=== PATIENT | male | born 1950 | race Caucasian/White ===

== ENCOUNTER 2018-11-20 12:05 | Inpatient (IN) | payer MEDICARE, BC, OTHER ==
[~2018-11-20] VITALS: Ht 193 cm; Wt 138.9 kg
[2018-11-20] MEDS: IV NORMAL SALINE 1,000ML 1,000 ML IV SCH (03:00)
[2018-11-20] MEDS ORDERED: IV NORMAL SALINE 1,000ML 1,000 ML IV SCH (12:35)
--- NOTE | 2018-11-20 12:44 | PHYS DOC ---
Past History Past Medical History: Other Additional Past Medical Histor: diabetes, schizophrenia, BPH, hyperlipidemia, delusional disorder Smoking: Non-smoker Alcohol Use: None Drug Use: None Adult General Chief Complaint Chief Complaint: OTHER COMPLAINTS HPI HPI Patient is a 67 year old male sent from the [facility] care facility where he resides due to decreased oral intake over the past couple of days, abdominal pain, elevated blood sugar and diabetic patient. History is limited from the patient due to his history of schizophrenia and not speaking. He was found by EMS to be mildly hypoxic. This improved with supplemental, nasal cannula oxygen.[] Review of Systems Review of Systems Unable to obtain from patient All other systems were reviewed and found to be within normal limits, except as documented in this note. Physical Exam Physical Exam Constitutional: Well developed, well nourished, no acute distress, non-toxic appearance. [] HENT: Normocephalic, atraumatic, bilateral external ears normal, oropharynx moist, no oral exudates, nose normal. [] Eyes: PERRLA, EOMI, conjunctiva normal, no discharge. [] Neck: Normal range of motion, no tenderness, supple, no stridor. [] Cardiovascular:Heart rate is tachycardic with a regular rhythm, no murmur [] Lungs & Thorax: Bilateral breath sounds clear to auscultation [] Abdomen: Bowel sounds normal, soft, diffuse tenderness, no rebound, no guarding, no rigidity, no masses, no pulsatile masses. [] Skin: Warm, dry, no erythema, no rash. [] Back: No tenderness, no CVA tenderness. [] Extremities: No tenderness, no cyanosis, no clubbing, ROM intact, no edema. [] Neurologic: Alert and oriented X 3, normal motor function, normal sensory function, no focal deficits noted. [] Psychologic: Affect normal, judgement normal, mood normal. [] EKG EKG EKG shows a sinus tachycardia at 111 bpm, left axis, QTC of 447 ms, no ST elevation. No old EKG available for comparison. Interpreted by me at 1217[] Radiology/Procedures Radiology/Procedures PROCEDURE: CT ANGIO CHEST W ABD PEL W/ PQRS Compliance Statement: One or more of the following individualized dose reduction techniques were utilized for this examination: 1. Automated exposure control 2. Adjustment of the mA and/or kV according to patient size 3. Use of iterative reconstruction technique CT angiography chest, abdomen and pelvis with contrast 11/20/2018 2:19 PM INDICATION: Hypoxia, elevated d-dimer COMPARISON: None available TECHNIQUE: Multiple axial CT images of the chest, abdomen and pelvis were obtained after the intravenous administration of 98 mL nonionic contrast. Maximum intensity projection images are provided. Coronal and sagittal reformats are provided. FINDINGS: Thyroid gland is normal in appearance. Heart size is borderline enlarged. Calcified mediastinal lymphadenopathy is identified suggestive of remote granulomatous exposure. Thoracic esophagus is normal in appearance. Thoracic aorta is normal in course and caliber with mild calcified atheromatous plaque. Three-vessel coronary artery vascular calcifications are present. There is bibasilar airspace consolidation which may represent subsegmental atelectasis versus infiltrate. There is a femoral neck calcified granuloma in the medial left lung base. There is no significant pulmonary vascular congestion or pneumothorax. There is adequate opacification of the central pulmonary arteries with limited evaluation of the lobar, segmental and subsegmental pulmonary arteries secondary to limited contrast bolus an respiratory motion. No filling defects are identified within the opacified portions of the pulmonary arteries. This includes the central and main pulmonary arteries. There is possible filling defect within a left lower lobar segmental pulmonary artery, although given limitations from above this may be artifactual. Abdomen/pelvis: Liver is normal in appearance. Calcifications within the spleen likely represent sequela prior granulomatous exposure. Metallic densities identified within the stomach resulting in artifact in the left upper quadrant. There is moderate atrophy of the pancreas. No pancreatic ductal dilatation is visualized. Gallbladder is normal in appearance. The abdominal aorta is normal in course and caliber. There are no pathologically enlarged lymph nodes in the abdomen and pelvis. There is no abdominal free fluid. There is no free intraperitoneal air. Mild calcified atheromatous plaque is identified involving the abdominal aorta. Small fat-containing left inguinal hernia. There is a shunt catheter identified within the right midabdomen. No free fluid or free intraperitoneal air. Small and large bowel are normal in caliber. No evidence for bowel obstruction or inflammation. Appendix is normal in appearance. The kidneys enhance symmetrically. There is no suspicious renal mass. There is no hydronephrosis. There are no suspected calculi within the kidneys, ureters or urinary bladder. Urinary bladder is predominantly decompressed from Smith catheter. Minimal gas is likely iatrogenic. Prostatomegaly measuring 5.5 x 6.0 cm in transaxial dimensions. There is diffuse osteopenia. No suspicious osseous abnormality is identified. IMPRESSION: 1. Limited evaluation of the pulmonary arteries although there is no central or main pulmonary embolism. There may be a filling defect within the left lower lobe pulmonary artery although this may be artifactual secondary to poor contrast opacification and respiratory motion. 2. Bilateral lower lobe airspace consolidation may be associated with multifocal infiltrates versus atelectasis versus pulmonary infarcts from pulmonary emboli. Recommend short-term follow-up. 3. Metallic density within the dependent portion of the stomach may be ingested foreign body measuring 5 mm. No bowel obstruction or inflammation. 4. Prostatomegaly. 5. Smith catheter is in position. FOR INTERNAL CODING PURPOSES Critical result: Findings discussed with GUS CALABRESE at 11/20/2018 4:48 PM.[] Course & Med Decision Making Course & Med Decision Making Pertinent Labs and Imaging studies reviewed. (See chart for details) ED course: Patient arrived, was placed in bed, and tolerated exam well. He was given IV fluids, and antibiotics for presumptive infection prior to imaging results. He was given multiple breathing treatments which didn't improve lung sounds and his oxygenation. His heart rate also improved with the IV fluids. After the return of the laboratory and imaging findings, consultation was made with the hospitalist service for admission. He graciously accepted the patient. Medical decision making: Patient with infiltrate versus PE. Favor the infiltrate. He has received antibiotics. Additional fluids are infusing. His sugars are elevated but he does not appear to be in DKA given his normal pH. He is being admitted for further evaluation and treatment area[] Dragon Disclaimer Dragon Disclaimer This electronic medical record was generated, in whole or in part, using a voice recognition dictation system. Departure Departure: Impression: Primary Impression: Pneumonia Additional Impressions: Elevated lactic acid level Schizophrenia Poorly controlled diabetes mellitus Hypoxia Disposition: 09 ADMITTED INPATIENT Admitting Physician: Gordo Morrison Condition: IMPROVED Problem Qualifiers Primary Impression: Pneumonia Pneumonia type: due to unspecified organism Laterality: bilateral Lung location: lower lobe of lung Qualified Codes: J18.1 - Lobar pneumonia, unspecified organism Additional Impressions: Schizophrenia Schizophrenia type: unspecified Qualified Codes: F20.9 - Schizophrenia, unspecified GUS CALABRESE DO Nov 20, 2018 12:44
[2018-11-20 13:10] LABS: BASO % 0 % (0-3); EOS % 0 % (0-3); HEMATOCRIT 47.6 % (39.0-53.0); HEMOGLOBIN 15.5 g/dL (13.0-17.5); LYMPH # 1.3 x10^3/uL (1.0-4.8); LYMPH % 11 % (24-48); MEAN CORPUSCULAR HEMOGLOBIN 31 pg (25-35); MEAN CORPUSCULAR HGB CONC 33 g/dL (31-37); MEAN CORPUSCULAR VOLUME 96 fL (79-100); MONO # 1.3 x10^3/uL (0.0-1.1); MONO % 12 % (0-9); NEUT # 8.8 x10^3uL (1.8-7.7); NEUT % 77 % (31-73); PLATELET COUNT 233 x10^3/uL (140-400); RED BLOOD COUNT 4.96 x10^6/uL (4.30-5.70); RED CELL DISTRIBUTION WIDTH 14.1 % (11.5-14.5); WHITE BLOOD COUNT 11.5 x10^3/uL (4.0-11.0)
[2018-11-20 13:14] LABS: ALBUMIN 2.7 g/dL (3.4-5.0); ALBUMIN/GLOBULIN RATIO 0.6 (1.0-1.7); CALCIUM 8.9 mg/dL (8.5-10.1); CREATININE 1.1 mg/dL (0.7-1.3); GFR 66.4; POTASSIUM 3.7 mmol/L (3.5-5.1); TOTAL BILIRUBIN 0.7 mg/dL (0.2-1.0); TOTAL PROTEIN 6.9 g/dL (6.4-8.2)
[2018-11-20] MEDS ORDERED: IOHEXOL 300 MG/ML 75 ML VIAL. IV ONE (13:30)
[2018-11-20] MEDS ORDERED: ONDANSETRON PF 4 MG/2 ML VIAL. IV ONE (13:30)
[2018-11-20] MEDS ORDERED: IOHEXOL 240 MG/ML 50ML VIAL. PO ONE (13:30)
[2018-11-20] MEDS ORDERED: IPRATRPIUM/ALBUTEROL 0.5/2.5MG 3 ML NEBU. NEB ONE (13:30)
[2018-11-20] MEDS ORDERED: ALBUTEROL SULFATE 2.5 MG/3 ML NEBU. ONE (13:31)
[2018-11-20 13:38] LABS: BGAS PH 7.45 (7.35-7.46)
--- NOTE | 2018-11-20 13:56 | RAD ---
Exam performed: One view chest. Indication: Hyperglycemia, weakness and abdominal pain Date of Service: 11/20/2018 12:35 PM Comparison: None available. Single AP upright portable view chest findings: Cardiomediastinal silhouette is within limits of normal. No acute infiltrates, effusion or pneumothorax is detected. The bony structures are normal. Impression: No acute cardiopulmonary process is detected. Electronically signed by: Zainab Soliman MD (11/20/2018 1:54 PM) [facility]
[2018-11-20 14:11] LABS: BACTERIA,URINE 0 /HPF (0-FEW); BILIRUBIN,URINE NEG (NEG); CLARITY,URINE CLEAR; COLOR,URINE AMBER; GLUCOSE,URINE >=1000 mg/dL (NEG); HYALINE CASTS, URINE MOD /HPF; NITRITE,URINE NEG (NEG); RBC,URINE 0 /HPF (0-2); SQUAMOUS EPITHELIAL CELL,UR OCC /LPF; UROBILINOGEN,URINE 0.2 mg/dL (0.2 mg/dL); WBC,URINE 0 /HPF (0-4)
[2018-11-20] MEDS ORDERED: IV NORMAL SALINE 1,000ML 1,000 ML IV ONE ×2 (14:15→17:30)
--- NOTE | 2018-11-20 14:28 | EKG ---
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
--- NOTE | 2018-11-20 14:29 | EKG ---
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
[2018-11-20] MEDS ORDERED: IOHEXOL 350 MG/ML 100 ML VIAL. IV ONE (14:30)
--- NOTE | 2018-11-20 16:51 | RAD ---
PQRS Compliance Statement: One or more of the following individualized dose reduction techniques were utilized for this examination: 1. Automated exposure control 2. Adjustment of the mA and/or kV according to patient size 3. Use of iterative reconstruction technique CT angiography chest, abdomen and pelvis with contrast 11/20/2018 2:19 PM INDICATION: Hypoxia, elevated d-dimer COMPARISON: None available TECHNIQUE: Multiple axial CT images of the chest, abdomen and pelvis were obtained after the intravenous administration of 98 mL nonionic contrast. Maximum intensity projection images are provided. Coronal and sagittal reformats are provided. FINDINGS: Thyroid gland is normal in appearance. Heart size is borderline enlarged. Calcified mediastinal lymphadenopathy is identified suggestive of remote granulomatous exposure. Thoracic esophagus is normal in appearance. Thoracic aorta is normal in course and caliber with mild calcified atheromatous plaque. Three-vessel coronary artery vascular calcifications are present. There is bibasilar airspace consolidation which may represent subsegmental atelectasis versus infiltrate. There is a femoral neck calcified granuloma in the medial left lung base. There is no significant pulmonary vascular congestion or pneumothorax. There is adequate opacification of the central pulmonary arteries with limited evaluation of the lobar, segmental and subsegmental pulmonary arteries secondary to limited contrast bolus an respiratory motion. No filling defects are identified within the opacified portions of the pulmonary arteries. This includes the central and main pulmonary arteries. There is possible filling defect within a left lower lobar segmental pulmonary artery, although given limitations from above this may be artifactual. Abdomen/pelvis: Liver is normal in appearance. Calcifications within the spleen likely represent sequela prior granulomatous exposure. Metallic densities identified within the stomach resulting in artifact in the left upper quadrant. There is moderate atrophy of the pancreas. No pancreatic ductal dilatation is visualized. Gallbladder is normal in appearance. The abdominal aorta is normal in course and caliber. There are no pathologically enlarged lymph nodes in the abdomen and pelvis. There is no abdominal free fluid. There is no free intraperitoneal air. Mild calcified atheromatous plaque is identified involving the abdominal aorta. Small fat-containing left inguinal hernia. There is a shunt catheter identified within the right midabdomen. No free fluid or free intraperitoneal air. Small and large bowel are normal in caliber. No evidence for bowel obstruction or inflammation. Appendix is normal in appearance. The kidneys enhance symmetrically. There is no suspicious renal mass. There is no hydronephrosis. There are no suspected calculi within the kidneys, ureters or urinary bladder. Urinary bladder is predominantly decompressed from Smith catheter. Minimal gas is likely iatrogenic. Prostatomegaly measuring 5.5 x 6.0 cm in transaxial dimensions. There is diffuse osteopenia. No suspicious osseous abnormality is identified. IMPRESSION: 1. Limited evaluation of the pulmonary arteries although there is no central or main pulmonary embolism. There may be a filling defect within the left lower lobe pulmonary artery although this may be artifactual secondary to poor contrast opacification and respiratory motion. 2. Bilateral lower lobe airspace consolidation may be associated with multifocal infiltrates versus atelectasis versus pulmonary infarcts from pulmonary emboli. Recommend short-term follow-up. 3. Metallic density within the dependent portion of the stomach may be ingested foreign body measuring 5 mm. No bowel obstruction or inflammation. 4. Prostatomegaly. 5. Smith catheter is in position. FOR INTERNAL CODING PURPOSES Critical result: Findings discussed with GUS CALABRESE at 11/20/2018 4:48 PM. RESULT CODE: (C) Electronically signed by: Marilynn Whitt MD (11/20/2018 4:48 PM) [facility]
[2018-11-20] MEDS ORDERED: ONDANSETRON PF 4 MG/2 ML VIAL. IV PRN (18:00)
[2018-11-20] MEDS ORDERED: ACETAMINOPHEN 325 MG TABLET PO PRN (18:00)
--- NOTE | 2018-11-20 20:19 | HP ---
ADMIT DATE: 11/20/2018 ATTENDING PHYSICIAN: Dr. Madera. CHIEF COMPLAINT: Altered mentation. HISTORY OF PRESENT ILLNESS: The patient is a 67-year-old gentleman from [facility]. They sent him through the Emergency Room because of decreased mentation. Clinically, he appears very weak. He is nonverbal and nonambulatory, longstanding history of schizoaffective disorder. Workup in the ED included a chest x-ray, which is fairly unremarkable. He had elevated hemidiaphragm, poor inspiratory effort. A CT scan of the chest demonstrated no significant blood clots; however, he had bibasilar infiltrates consistent with pneumonia, it could be aspiration. He clinically appears dry. Blood sugars have been high. He is diabetic. He is admitted then with bibasilar pneumonia, assisted acquired. PAST MEDICAL HISTORY: Gleaned from the chart and his assisted paperwork. He is nonverbal. He has a longstanding history of type 2 diabetes, generalized debilitation of schizoaffective disorder. He is nonverbal. He has not had any behavioral issues. He also has paranoid schizophrenia, chronic constipation, hyperlipidemia, generalized debilitation. MEDICATIONS: Current medicines are reviewed. He is on scheduled aspirin, Lipitor, Depakote, Benadryl, Dulcolax, vitamin D, Fleets Enema as needed, Lasix 20 mg daily, Levemir, magnesium, metformin, MiraLax, paliperidone, Remeron, senna, Zoloft, Ultram and NovoLog. ALLERGIES: He has allergies to PENICILLIN, exact reaction is unclear. SOCIAL HISTORY: Nonsmoker, nondrinker. FAMILY HISTORY: Unobtainable. REVIEW OF SYSTEMS: Unobtainable. PHYSICAL EXAMINATION: GENERAL: When I saw him, this is an obtunded gentleman who is bedridden, nonverbal and nonambulatory. VITAL SIGNS: Initial vital signs in the ED showed a blood pressure of 158/60. When I saw him pulse was 102 regular, temperature 97.9 degrees Fahrenheit. HEENT: Head is without trauma. Pupils are reactive. Sclerae nonicteric. The oropharynx is clear. NECK: Supple. No stridor or bruits. Venous pressure is not distended. Oropharynx is clear. Mucous membranes dry. LUNGS: Decreased breath sounds at both bases. No wheezing identified. CARDIOVASCULAR: Showed distant heart tones. No obvious gallops. Peripheral pulses are palpable and weak. ABDOMEN: Soft, scaphoid, nontender, no organomegaly. Bowel sounds were hypoactive. EXTREMITIES: Shows contractures of his knees and feet. There is 2+ edema. Indwelling Smith catheter was in place. NEUROLOGIC: The patient is very weak, obtunded. He is nonverbal. He is nonambulatory. He is not responsive to any appropriate questions. Pertinent x-rays and CT scan as noted. He has no obvious blood clots; however, he has bibasilar infiltrates seen on CT, not seen on the plain films. PERTINENT LABORATORY STUDIES: His hemoglobin is 15.5 g/dL in a hemoconcentrated state, white count 11,500. Chemistry panel showed lactic acid 4.3. Arterial blood gas showed a pH of 7.45, pCO2 of 39 mmHg, pO2 of 52 mmHg. Supplemental oxygen was added. His creatinine was adequate. Nonfasting blood sugar is 300. ASSESSMENT: 1. A 67-year-old gentleman assisted resident, has bibasilar pneumonia, most likely on the basis of aspiration. 2. Dehydration. 3. Poorly controlled diabetes mellitus. 4. Schizoaffective disorder. 5. Paranoid schizophrenia. 6. Clinically, he is dehydrated. 7. Generalized debilitation. 8. Muscle contractions. 9. Probable aspiration. PLAN: 1. Admit to the inpatient unit. 2. IV hydration. 3. Serial chemistries and blood sugars. 4. Empiric antibiotics. 5. We shall hold his p.o. meds. 6. We will do a swallow evaluation when speech pathology is available. 7. We show ascertain his code status if the family members are available. NATALY MADERA MD DR: SHEY/ruby JOB#: [id number] / [id number] RAKESH Shelton MD
[2018-11-20 21:00] VITALS: BP 115/58
[2018-11-20 22:00] VITALS: BP 126/57
[2018-11-20 23:00] VITALS: BP 130/55
[2018-11-21] VITALS (21 sets, daily range): BP systolic 117–165; BP diastolic 41–83
[2018-11-21] MEDS: IV NORMAL SALINE 1,000ML 1,000 ML IV SCH ×3 (01:52→23:54)
[2018-11-21 05:58] LABS: BASO % 1 % (0-3); EOS % 0 % (0-3); HEMATOCRIT 38.9 % (39.0-53.0); LYMPH # 0.9 x10^3/uL (1.0-4.8); LYMPH % 9 % (24-48); MEAN CORPUSCULAR HEMOGLOBIN 32 pg (25-35); MEAN CORPUSCULAR HGB CONC 33 g/dL (31-37); MEAN CORPUSCULAR VOLUME 96 fL (79-100); MONO # 1.1 x10^3/uL (0.0-1.1); MONO % 11 % (0-9); NEUT # 7.8 x10^3uL (1.8-7.7); NEUT % 79 % (31-73); PLATELET COUNT 196 x10^3/uL (140-400); RED BLOOD COUNT 4.06 x10^6/uL (4.30-5.70); RED CELL DISTRIBUTION WIDTH 14.2 % (11.5-14.5); WHITE BLOOD COUNT 9.9 x10^3/uL (4.0-11.0)
[2018-11-21 06:05] LABS: CREATININE 0.8 mg/dL (0.7-1.3); GFR 95.8
[2018-11-21] MEDS ORDERED: DIVA500T4 PO (06:07)
[2018-11-21] MEDS ORDERED: DIPH50CA PO (06:07)
[2018-11-21] MEDS ORDERED: MAGN400C PO (06:07)
[2018-11-21] MEDS ORDERED: TRAM50TA PO (06:07)
[2018-11-21] MEDS ORDERED: INSU100I27 SQ (06:07)
[2018-11-21] MEDS ORDERED: ERGO500027 PO (06:07)
[2018-11-21] MEDS ORDERED: MIRT15TA PO (06:07)
[2018-11-21] MEDS ORDERED: METF10007 PO (06:07)
[2018-11-21] MEDS ORDERED: ATOR20TA58 PO (06:07)
[2018-11-21] MEDS ORDERED: ASPI81TA50 PO (06:07)
[2018-11-21] MEDS ORDERED: PALI3TAB2 PO (06:07)
[2018-11-21] MEDS ORDERED: INSU100I17 SQ (06:07)
[2018-11-21] MEDS ORDERED: SERT100T PO (06:07)
[2018-11-21] MEDS ORDERED: FURO-69 PO (06:07)
[2018-11-21] MEDS ORDERED: DEXTROSE 50% 25 GM / 50ML DISP.SYRIN. IV PRN (07:45)
[2018-11-21] MEDS: INSULIN LISPRO 300 UNITS/3 ML VIAL. SQ SCH ×4 (08:37→16:54)
[2018-11-21] MEDS: IPRATRPIUM/ALBUTEROL 0.5/2.5MG 3 ML NEBU. NEB SCH ×4 (08:48→20:40)
[2018-11-21] MEDS: MEROPENEM 1 GM in IV NORMAL SALINE 100ML 100 ML IV SCH ×2 (16:08→23:54)
[2018-11-21] MEDS: VANCOMYCIN PER PHARMACY MC PRN (16:46)
[2018-11-21] MEDS: VANCOMYCIN 2 GM in IV NORMAL SALINE 500ML 500 ML IV SCH (17:24)
[2018-11-21] MEDS: INSULIN GLARGINE SYRINGE. SQ SCH (21:27)
[2018-11-21] MEDS: MAGNESIUM OXIDE 400 MG TABLET PO SCH (21:27)
[2018-11-21] MEDS: DIVALPROEX ER 500 MG TAB.ER.24H PO SCH (21:28)
[2018-11-21] MEDS: risperiDONE 2 MG TABLET. PO SCH (21:28)
[2018-11-21] MEDS: ATORVASTATIN CALCIUM 20 MG TABLET PO SCH (21:28)
[2018-11-21] MEDS: MIRTAZAPINE 15 MG TABLET PO SCH (21:28)
[2018-11-21] MEDS ORDERED: MEROPENEM 1 GM in IV NORMAL SALINE 100ML 100 ML IV SCH (22:00)
[2018-11-22] VITALS (12 sets, daily range): BP systolic 110–143; BP diastolic 42–90
--- NOTE | 2018-11-22 04:42 | PN ---
DATE: 11/21/2018 SUBJECTIVE: The patient is resting, slightly propped up in bed, in no apparent respiratory distress. He is nonverbal, has prominent parkinsonian tremor at least in his right upper extremity. Apparently, he seemed to be mostly bedbound. OBJECTIVE: GENERAL: On examining him, he looked pale, but no jaundice, cyanosis or thyromegaly. No jugular venous distention. Mild bilateral lower limb edema. VITAL SIGNS: His heart rate was 92, blood pressure was 133/76, temperature was 99.8, respiratory rate was 19 and oxygen saturation was 97% on 4 liters of oxygen. HEAD, EYES, EARS, NOSE AND THROAT: Showed normocephalic, atraumatic. NECK: Supple. HEART: Showed normal first and second heart sounds. No gallop or murmur. CHEST: Clear to auscultation. No crepitation or rhonchi. ABDOMEN: Distended, soft, nontender. NEUROLOGIC: He is awake, alert, opens eyes, tracks, but does not respond verbally. All his cranial nerves seem to be grossly intact. He apparently seems to be able to move his upper extremities to much good extent than his lower extremities, mostly probably bedbound, chair bound. His intake was 2350, output was 550. LABORATORY DATA: As of this morning showed a white cell count of 9900, hemoglobin 13, hematocrit 39, MCV 96, and platelet count of 196,000. His chemistry showed that his lactic acid is trending down. His serum sodium was 143, potassium 4, chloride 106, bicarbonate 30, anion gap of 7, BUN 22, creatinine 0.8, estimated GFR was 96 mL per minute, his glucose was 340, calcium was 8, and magnesium was 1.8. His D-dimer was slightly elevated at 0.74. However, his INR and aPTT were normal. His blood gases showed a pH of ____, pCO2 of 39, pO2 of 59, bicarbonate 28, and oxygen saturation was 88% on FiO2 of 44%. His urinalysis was essentially unremarkable and his nasal screen for MRSA by PCR was negative. His CT scan of the chest, abdomen and pelvis is probably consistent with bilateral lower lobe airspace consolidation that could be multifocal infiltrate versus atelectasis versus pulmonary infarct from pulmonary emboli. He has metallic density within the dependent portion of the stomach and has severely enlarged prostate and has a Smith catheter is in position. ASSESSMENT: 1. Healthcare-associated pneumonia. 2. Poorly controlled type 2 diabetes. The patient has marked muscle weakness and contracture, it is almost functional quadriplegia and is known to have schizoaffective disorder, paranoid schizophrenia. PLAN: My plan is to change his antibiotic to Zosyn and vancomycin. Continue with IV fluid. Continue to monitor his labs closely and adjust antibiotic accordingly. RAKESH GERARDO MD DR: EMANUEL/ruby JOB#: [id number] / [id number]
[2018-11-22] MEDS: IPRATRPIUM/ALBUTEROL 0.5/2.5MG 3 ML NEBU. NEB SCH ×4 (05:18→21:16)
[2018-11-22] MEDS: VANCOMYCIN 2 GM in IV NORMAL SALINE 500ML 500 ML IV SCH ×2 (06:00→18:38)
[2018-11-22 06:16] LABS: HEMATOCRIT 35.3 % (39.0-53.0); RED BLOOD COUNT 3.73 x10^6/uL (4.30-5.70); RED CELL DISTRIBUTION WIDTH 13.7 % (11.5-14.5); WHITE BLOOD COUNT 8.1 x10^3/uL (4.0-11.0)
[2018-11-22 06:36] LABS: ALBUMIN/GLOBULIN RATIO 0.6 (1.0-1.7); CALCIUM 7.9 mg/dL (8.5-10.1); CREATININE 0.7 mg/dL (0.7-1.3); GFR 111.8; POTASSIUM 3.4 mmol/L (3.5-5.1); TOTAL BILIRUBIN 0.7 mg/dL (0.2-1.0); TOTAL PROTEIN 5.1 g/dL (6.4-8.2)
[2018-11-22] MEDS: MAGNESIUM OXIDE 400 MG TABLET PO SCH ×2 (09:00→21:15)
[2018-11-22] MEDS: ASPIRIN ENTERIC COATED 81 MG TABLET.DR. PO SCH (09:00)
[2018-11-22] MEDS: risperiDONE 2 MG TABLET. PO SCH ×2 (09:00→21:14)
[2018-11-22] MEDS: SERTRALINE 100 MG TABLET. PO SCH (09:00)
[2018-11-22] MEDS: MEROPENEM 1 GM in IV NORMAL SALINE 100ML 100 ML IV SCH ×2 (10:19→17:52)
[2018-11-22] MEDS: INSULIN LISPRO 300 UNITS/3 ML VIAL. SQ SCH ×6 (10:21→17:57)
[2018-11-22] MEDS ORDERED: FUROSEMIDE 20 MG/2 ML VIAL IVP ONE (15:45)
[2018-11-22] MEDS: metFORMIN 500 MG TABLET PO SCH (17:51)
[2018-11-22] MEDS: ATORVASTATIN CALCIUM 20 MG TABLET PO SCH (21:14)
[2018-11-22] MEDS: DIVALPROEX ER 500 MG TAB.ER.24H PO SCH (21:15)
[2018-11-22] MEDS: POTASSIUM CHLORIDE 20 MEQ TABLET.ER. PO SCH (21:15)
[2018-11-22] MEDS: MIRTAZAPINE 15 MG TABLET PO SCH (21:15)
[2018-11-22] MEDS: INSULIN GLARGINE SYRINGE. SQ SCH (21:19)
[2018-11-23] MEDS: MEROPENEM 1 GM in IV NORMAL SALINE 100ML 100 ML IV SCH ×4 (00:01→23:55)
[2018-11-23 03:35] VITALS: BP 135/59
[2018-11-23] MEDS: IPRATRPIUM/ALBUTEROL 0.5/2.5MG 3 ML NEBU. NEB SCH ×4 (05:24→21:17)
[2018-11-23 06:10] VITALS: BP 139/60
[2018-11-23 06:32] LABS: VANC TR 18.6 mcg/mL (10.0-20.0)
[2018-11-23] MEDS: VANCOMYCIN 2 GM in IV NORMAL SALINE 500ML 500 ML IV SCH ×2 (06:37→17:21)
[2018-11-23 07:37] LABS: HEMATOCRIT 37.3 % (39.0-53.0); HEMOGLOBIN 12.7 g/dL (13.0-17.5); RED BLOOD COUNT 3.96 x10^6/uL (4.30-5.70); RED CELL DISTRIBUTION WIDTH 13.8 % (11.5-14.5); WHITE BLOOD COUNT 8.2 x10^3/uL (4.0-11.0)
[2018-11-23 07:53] LABS: ALBUMIN 1.9 g/dL (3.4-5.0); ALBUMIN/GLOBULIN RATIO 0.5 (1.0-1.7); CALCIUM 7.9 mg/dL (8.5-10.1); CREATININE 0.7 mg/dL (0.7-1.3); GFR 111.8; POTASSIUM 3.4 mmol/L (3.5-5.1); TOTAL BILIRUBIN 0.7 mg/dL (0.2-1.0); TOTAL PROTEIN 5.4 g/dL (6.4-8.2)
[2018-11-23] MEDS: POTASSIUM CHLORIDE 20 MEQ TABLET.ER. PO SCH ×3 (08:44→21:08)
[2018-11-23] MEDS: MAGNESIUM OXIDE 400 MG TABLET PO SCH ×2 (08:44→21:09)
[2018-11-23] MEDS: SERTRALINE 100 MG TABLET. PO SCH (08:44)
[2018-11-23] MEDS: risperiDONE 2 MG TABLET. PO SCH ×2 (08:45→21:08)
[2018-11-23] MEDS: ASPIRIN ENTERIC COATED 81 MG TABLET.DR. PO SCH (08:45)
[2018-11-23] MEDS: INSULIN LISPRO 300 UNITS/3 ML VIAL. SQ SCH ×6 (08:47→17:23)
[2018-11-23] MEDS: VANCOMYCIN PER PHARMACY MC PRN (08:56)
[2018-11-23] MEDS: FUROSEMIDE 20 MG TABLET PO SCH (08:58)
[2018-11-23] MEDS: metFORMIN 500 MG TABLET PO SCH ×2 (08:59→16:27)
[2018-11-23 10:23] VITALS: BP 112/41
[2018-11-23 14:19] VITALS: BP 125/63
[2018-11-23] MEDS: traMADol 50 MG TABLET PO PRN ×2 (14:53→21:10)
[2018-11-23] MEDS: INSULIN GLARGINE SYRINGE. SQ SCH ×2 (14:56→21:12)
[2018-11-23] MEDS ORDERED: FUROSEMIDE 40 MG/4 ML VIAL IVP ONE (15:30)
[2018-11-23 19:15] VITALS: BP 116/69
[2018-11-23] MEDS: LACTOBACILLUS RHAMNOSUS GG 1 CAPSULE. PO SCH (21:08)
[2018-11-23] MEDS: ATORVASTATIN CALCIUM 20 MG TABLET PO SCH (21:08)
[2018-11-23] MEDS: MIRTAZAPINE 15 MG TABLET PO SCH (21:10)
[2018-11-23] MEDS: DIVALPROEX ER 500 MG TAB.ER.24H PO SCH (21:10)
[2018-11-24 00:05] VITALS: BP 91/59
[2018-11-24 03:10] VITALS: BP 98/69
--- NOTE | 2018-11-24 03:30 | CONS ---
DATE OF CONSULTATION: 11/22/2018 NEUROLOGIC CONSULTATION REFERRING PHYSICIAN: Dr. Morrison. REASON FOR CONSULTATION: Severe weakness of the lower extremities. HISTORY OF PRESENT ILLNESS: This is a 67-year-old right-handed male who is a [facility] resident, was admitted to Emergency Room on 11/20/2018 on account of acute mental status changes. Neuro consult was requested because the patient has had severe weakness of the lower extremities and tremor of the upper extremities. The patient was seen in ICU bed 2. He is not able to provide any information. In Emergency Room, the patient was nonverbalizing. He has had weakness of the lower extremities for a period of time and has been bed confined or wheelchair confined. The etiology of his weakness is uncertain. However, I was told by a nursing staff that he might have some type of brain surgery, which I am not sure, I am not able contact any family members to confirm that. When I asked the patient the questions, he is very late to respond and for simple questions, he may say 1 or 2 words. Initial chest x-ray on admission revealed no acute cardiopulmonary process, but chest, abdomen and pelvic CT scan revealed bilateral lower lobe infiltrate and pulmonary embolism could not be entirely ruled out. PAST MEDICAL HISTORY: Significant for obesity, diabetes mellitus type 2, generalized weakness, history of schizoaffective disorders and paranoid schizophrenia, hyperlipidemia, benign prostate hypertrophy, congestive heart failure and depression. SOCIAL HISTORY: The patient is a [facility] resident. There is no history of smoking or alcohol drinking, or illicit drug use. FAMILY HISTORY: Not obtainable. CURRENT HOME MEDICATIONS: Albuterol nebulizer, aspirin, Lipitor, Depakote ER, insulin, metformin, mirtazapine, potassium, Risperdal, sertraline, tramadol and vitamin D. ALLERGIES: PENICILLIN. REVIEW OF SYSTEMS: A 10-point review of system was performed as mentioned above in history of present illness, otherwise unremarkable. PHYSICAL EXAMINATION: GENERAL: Obese male, not in acute distress. He weighs 139.3 kilos. VITAL SIGNS: Blood pressure 119/90, respiratory rate 25, pulse is 100 and regular, oxygen saturation is 93% on 2 liters by nasal cannula and temperature 100.3. HEENT: Normocephalic, atraumatic, otherwise unremarkable. NECK: Supple. Negative for carotid bruit, lymphadenopathy or thyromegaly. LUNGS: With diminished breath sounds bilaterally. CARDIOVASCULAR: Regular rate and rhythm, normal S1, S2. ABDOMEN: Soft. Bowel sounds positive. EXTREMITIES: 2+ pitting edema, but no cyanosis or clubbing. NEUROLOGICAL: Mental Status: The patient is awake, but sometimes answer simple questions by 1 or 2 words. He follows 1-step simple commands. Further evaluation of his mental status is limited at this time. Cranial nerves: Pupils are reactive to light and accommodation. The extraocular movements are slow, but intact. There is no nystagmus. There is no facial motor or sensory deficit. Hearing appeared to be intact. The palate is elevated symmetrically. Further evaluation is limited at this time. Motor examination: On request, the patient moves his upper extremities spontaneously, but passively he bends his right lower extremity, but not able to move the left lower extremity. Sensory examination revealed normal pinprick touches throughout. Deep tendon reflexes were hypoactive with absent Achilles responses. Gait not tested. DIAGNOSTIC DATA: CT scan of the chest revealed evidence of bilateral basilar infiltrate. LABORATORY DATA: CBC revealed white blood cells of 8.1 thousand, hemoglobin 12, hematocrit 35.3, platelet count 182,000. Chemistry revealed ammonia level of 10, normal troponin level. NPB is high at 240. Other chemistry is pending. Urinalysis is negative. Coagulation: PT is 11, INR 1.1 and D-dimer is elevated at 0.74. IMPRESSION: 1. Generalized weakness, more prominent in the lower extremities, etiology uncertain. 2. Pneumonia, presented with bilateral lower lobe infiltrates. 3. Multiple medical problems include hyperlipidemia, chronic constipation, diabetes mellitus type 2. 4. Multiple psychiatric problems include paranoid schizophrenia and schizoaffective disorders, depression. RECOMMENDATIONS: 1. We will obtain further information from family members whether the patient had a brain surgery or not. 2. Continue with current management initiated by Dr. Moore/Dr. Morrison. M Dakota EDWARDS MD DR: YOSSI/ruby JOB#: [id number] / [id number]
[2018-11-24] MEDS: IPRATRPIUM/ALBUTEROL 0.5/2.5MG 3 ML NEBU. NEB SCH ×3 (05:08→15:59)
[2018-11-24] MEDS: VANCOMYCIN 2 GM in IV NORMAL SALINE 500ML 500 ML IV SCH (05:40)
--- NOTE | 2018-11-24 05:57 | PN ---
DATE: 11/23/2018 SUBJECTIVE: The patient is resting, slightly propped up in bed comfortably, in no apparent respiratory distress. He is awake, alert, slightly more verbal today. Did complain that he is constipated, but denied any chest pain. PHYSICAL EXAMINATION: GENERAL: When I examined him, he looked pale. Not jaundiced, cyanosed or thyromegaly. No jugular venous distention or limb edema. VITAL SIGNS: Her heart rate was 104, blood pressure was 125/63, temperature was 97.9, respiratory rate was 18, and oxygen saturation was 92% on 2.5 liters. HEAD, EYES, EARS, NOSE AND THROAT: Normocephalic, atraumatic. NECK: Supple. HEART: Showed normal first and second heart sounds with no gallop, rub or murmur. CHEST: Clear to auscultation. No crepitation or rhonchi. ABDOMEN: Distended, soft, nontender. NEUROLOGIC: He is awake, alert, but mostly nonverbal, although his cranial nerves are intact, he has pill rolling parkinsonian tremors. He has functional quadriplegia. He is mostly bedbound, chair bound. His intake over the last 24 hours was 4000, output was 975. LABORATORY WORK: As of this morning showed that his white cell count is down to 8200, hemoglobin 12.7, hematocrit 37, MCV 94 and platelet count 208,000. Serum sodium 142, potassium 3.4, chloride 104, bicarbonate 28, anion gap of 10, BUN 17, creatinine 0.7, estimated GFR was 111 mL per minute. His glucose was 108, calcium was 7.9. Total bilirubin, AST, ALT ____. His total protein was 5.4, albumin 1.9. His blood culture is still pending at the time of this dictation. ASSESSMENT: 1. Healthcare-associated pneumonia for which he continues to be on IV vancomycin and Zosyn. 2. Poorly controlled type 2 diabetes for which I have adjusted both his Lantus and Humalog insulin. 3. Severe Parkinson's disease with functional quadriplegia, marked muscle wasting and flexion contracture. 4. Schizoaffective disorder. 5. Paranoid schizophrenia. We will continue with both meropenem and vancomycin for today and if the cultures are negative and he is ALLERGIC TO PENICILLIN, we will switch him to Levaquin, can be discharged back to senior living facility tomorrow. RAKESH GERARDO MD DR: EMANUEL/ruby JOB#: [id number] / [id number]
[2018-11-24 06:05] VITALS: BP 111/55
[2018-11-24 06:29] LABS: CREATININE 0.7 mg/dL (0.7-1.3); GFR 111.8; POTASSIUM 3.6 mmol/L (3.5-5.1)
[2018-11-24] MEDS: INSULIN LISPRO 300 UNITS/3 ML VIAL. SQ SCH ×2 (08:00→14:18)
[2018-11-24] MEDS: metFORMIN 500 MG TABLET PO SCH ×3 (08:00→11:51)
[2018-11-24] MEDS: POTASSIUM CHLORIDE 20 MEQ TABLET.ER. PO SCH ×4 (09:00→12:16)
[2018-11-24] MEDS: LACTOBACILLUS RHAMNOSUS GG 1 CAPSULE. PO SCH ×3 (09:00→11:51)
[2018-11-24] MEDS: FUROSEMIDE 20 MG TABLET PO SCH ×3 (09:00→11:52)
[2018-11-24] MEDS: ASPIRIN ENTERIC COATED 81 MG TABLET.DR. PO SCH ×3 (09:00→11:51)
[2018-11-24] MEDS: MAGNESIUM OXIDE 400 MG TABLET PO SCH ×3 (09:00→11:51)
[2018-11-24] MEDS: risperiDONE 2 MG TABLET. PO SCH ×3 (09:00→11:52)
[2018-11-24] MEDS: SERTRALINE 100 MG TABLET. PO SCH ×3 (09:00→11:51)
[2018-11-24] MEDS: MEROPENEM 1 GM in IV NORMAL SALINE 100ML 100 ML IV SCH (09:32)
[2018-11-24 12:30] VITALS: BP 114/69
--- NOTE | 2018-11-24 13:39 | DS ---
DATE OF DISCHARGE: HOSPITAL COURSE: The patient is a 67-year-old male patient who is currently residing at [facility], who was sent to the Emergency Room because of decreased mentation. He is nonverbal and nonambulatory, longstanding history of schizoaffective disorder. He has had a CT scan of the chest, which showed no evidence of pulmonary emboli; however, it did show bibasilar infiltrate consistent with pneumonia that could be aspiration in nature. His blood sugar was very high. The patient was admitted with acute hypoxic respiratory failure, healthcare-associated pneumonia. As he is ALLERGIC TO PENICILLIN, he was started on vancomycin and meropenem. The patient did very well. His white cell count came down nicely from 11,500 to 8000. He remained afebrile, hemodynamically stable throughout. He became more awake, alert, although generally very weak, bedbound, has functional quadriplegia and he has remained stable, a decision was made to discharge him back to [facility] to continue on oral Levaquin. His blood cultures remained negative after 2 days. OBJECTIVE: GENERAL: When I examined him this afternoon, he looked well and was clearly in no apparent respiratory distress. He was pale, but no jaundice, cyanosis or thyromegaly. No jugular venous distention. No limb edema. VITAL SIGNS: Heart rate was 85, blood pressure was 110/55, temperature was 98.7, respiratory rate was 18 and oxygen saturation was 94% on 2 liters of oxygen. HEAD, EYES, EARS, NOSE AND THROAT: Showed normocephalic, atraumatic. NECK: Supple. HEART: Showed normal first and second heart sounds with no gallop, rub or murmur. CHEST: Clear to auscultation. No crepitation or rhonchi. ABDOMEN: Distended, soft, nontender. NEUROLOGIC: He was awake, but mostly nonverbal. He managed to mouth few words occasionally. All his cranial nerves were intact. He moves right upper extremity to much greater extent than his lower extremities. LABORATORY DATA: Showed a white cell count of 8200, hemoglobin 13, hematocrit 37, MCV 94 and platelet count 208,000. His chemistry showed a serum sodium 141, potassium 3.6, chloride 103, bicarbonate 32, anion gap of 6, BUN 17, creatinine 0.7, estimated GFR was 111 mL per minute. His glucose was 159, calcium was 8. DISCHARGE MEDICATIONS: The patient was discharged back to [facility] to continue on levofloxacin 750 mg once a day, aspirin 81 mg once a day, atorvastatin calcium 20 mg at bedtime, diphenhydramine 25 mg every 6 hours, divalproex sodium 500 mg, he takes 2000 mg at bedtime. He is on vitamin D2 50,000 international unit once a week, furosemide 20 mg once a day, NovoLog 6 units before meals and detemir insulin 18 units at bedtime. His magnesium oxide 400 mg twice a day, metformin 1000 mg twice a day, mirtazapine for Remeron 15 mg at bedtime. Paliperidone 12 mg p.o. daily, sertraline for Zoloft 100 mg daily and tramadol 50 mg every 6 hours. FINAL DISCHARGE DIAGNOSES: 1. Healthcare-associated pneumonia for which he will be discharged to continue on oral Levaquin. 2. Poorly controlled type 2 diabetes which needs adjustment of his both Lantus and Humalog insulin. 3. Severe Parkinson disease with functional quadriplegia with marked muscle wasting and flexion contracture. 4. Schizoaffective disorder. 5. Paranoid schizophrenia. RAKESH GERARDO MD DR: EMANUEL/ruby JOB#: [id number] / [id number]
--- NOTE | 2018-11-27 05:17 | PN ---
DATE: 11/24/2018 REFERRING PHYSICIAN: Dr. Moore. SUBJECTIVE: The patient continues to be sedated. He communicates with few words. Otherwise, no significant change in his mental status. There are no any new neurological complaints. OBJECTIVE: GENERAL: Obese male, not in acute distress. VITAL SIGNS: Blood pressure is 111/55, respiratory rate 18, pulse is 85 and regular, temperature 98.7, oxygen saturation 94% on 2 liters by nasal cannula. HEENT: Normocephalic, atraumatic, otherwise unremarkable. NECK: Supple. Negative for carotid bruit, lymphadenopathy or thyromegaly. LUNGS: Diminished breath sounds. No wheezing. CARDIOVASCULAR: Regular rate and rhythm, normal S1, S2. ABDOMEN: Soft. Bowel sounds positive. EXTREMITIES: Positive for 2+ pitting edema. NEUROLOGICAL EXAM: Mental Status: The patient is awake, but sometimes answers questions with 1 or 2 words. He follows 1-step simple commands. Further evaluation is limited. Cranial nerves are intact. Motor: The patient moves his upper extremity normally, but the strength in the lower extremities is 4/5 throughout. Sensory examination revealed normal pinprick and light touch senses throughout. Deep tendon reflexes were hypoactive, symmetric, gait not tested. IMPRESSION: 1. Generalized weakness, more prominent in the lower extremities. 2. Pneumonia. 3. Multiple psychiatric problems include schizoaffective disorders, paranoid schizophrenia, depressions, and anxiety. 4. Multiple medical problems include hyperlipidemia, diabetes mellitus type 2. RECOMMENDATIONS: Continue with current management. The patient is neurologically stable. M Dakota EDWARDS MD DR: YOSSI/ruby JOB#: [id number] / [id number]
[2018-11-28] MEDS ORDERED: CHOLECALCIFEROL (VITAMIN D3) 50,000 UNIT CAPSULE PO SCH (09:00)
== END 2018-11-24 16:05 | DRG 177 ==
LOC: ER 12:05 → ICU 16:50
PROVIDERS: ADMIT Hospitalist; ATTEND Hospitalist
DX: J69.0 Pneumonitis due to inhalation of food and vomit (principal); R53.2 Functional quadriplegia; J96.01 Acute respiratory failure with hypoxia; F20.0 Paranoid schizophrenia; E11.65 Type 2 diabetes mellitus with hyperglycemia; E86.0 Dehydration; N40.0 Benign prostatic hyperplasia without lower urinary tract symptoms; E78.5 Hyperlipidemia, unspecified; I50.9 Heart failure, unspecified; F32.9 Major depressive disorder, single episode, unspecified; G20 Parkinson's disease; K59.09 Other constipation; Z88.0 Allergy status to penicillin; Z99.3 Dependence on wheelchair; Z74.01 Bed confinement status; Z79.899 Other long term (current) drug therapy; Z68.37 Body mass index [BMI] 37.0-37.9, adult
CPT/HCPCS: 36415; 51702; 71045; 71275; 74177; 80048; 80053; 80202; 81001; 82140; 82803; 82947; 83605; 83690; 83735; 83880; 84484; 85025; 85027; 85379; 85610; 85730; 87040; 87641; 93005; 94640; 96365; 96375; J1815; J1940; J1956; J2185; J2405; J3370; J7040; J7620; 92610; 99285-25; J7030

== ENCOUNTER 2019-01-07 11:09 | Inpatient (IN) | payer MEDICARE, BC, OTHER ==
[2019-01-07] VITALS (8 sets, daily range): BP systolic 111–137; BP diastolic 52–73
[~2019-01-07] VITALS: Ht 193 cm; Wt 146.1 kg
[~2019-01-07 11:09] MED LIST: ASPI81TA50 PO; ATOR20TA58 PO; DIPH50CA PO; DIVA500T4 PO; ERGO500027 PO; FURO-69 PO; INSU100I17 SQ; INSU100I27 SQ; MAGN400C PO; METF10007 PO; MIRT15TA PO; PALI3TAB2 PO; SERT100T PO; TRAM50TA PO
[2019-01-07] MEDS ORDERED: IV NORMAL SALINE 1,000ML 1,000 ML IV SCH (11:37)
[2019-01-07 11:50] LABS: BASO % 0 % (0-3); EOS % 0 % (0-3); HEMATOCRIT 42.7 % (39.0-53.0); HEMOGLOBIN 13.9 g/dL (13.0-17.5); LYMPH # 0.8 x10^3/uL (1.0-4.8); LYMPH % 11 % (24-48); MEAN CORPUSCULAR HEMOGLOBIN 31 pg (25-35); MEAN CORPUSCULAR HGB CONC 33 g/dL (31-37); MEAN CORPUSCULAR VOLUME 96 fL (79-100); MONO # 0.6 x10^3/uL (0.0-1.1); MONO % 9 % (0-9); NEUT % 81 % (31-73); PLATELET COUNT 154 x10^3/uL (140-400); RED BLOOD COUNT 4.47 x10^6/uL (4.30-5.70); RED CELL DISTRIBUTION WIDTH 14.3 % (11.5-14.5); WHITE BLOOD COUNT 7.4 x10^3/uL (4.0-11.0)
[2019-01-07] MEDS ORDERED: IPRATRPIUM/ALBUTEROL 0.5/2.5MG 3 ML NEBU. NEB ONE ×2 (12:00→14:15)
--- NOTE | 2019-01-07 12:09 | RAD ---
PORTABLE CHEST 1V 01/07/2019 11:37 AM INDICATION: Dyspnea COMPARISON: 11/20/2018 TECHNIQUE: Portable frontal view of the chest is provided. FINDINGS: The cardiomediastinal silhouette is similar in appearance. Bilateral hilar prominence appears similar. Pulmonary vasculature appears accentuated by low lung volumes. Right sided ventriculoperitoneal shunt catheter is noted. There are no significant pleural effusions. There is no pulmonary vascular congestion. No pneumothorax. IMPRESSION: Low lung volumes limit evaluation. Bilateral hilar prominence may reflect lymphadenopathy versus vascular prominence. Aeration of lungs appears similar to the prior examination. Electronically signed by: Marilynn Whitt MD (01/07/2019 12:06 PM) [facility]
[2019-01-07 12:26] LABS: ALBUMIN 2.8 g/dL (3.4-5.0); ALBUMIN/GLOBULIN RATIO 0.7 (1.0-1.7); ALK PHOS 71 U/L (46-116); ALT (SGPT) 11 U/L (16-63); ANION GAP 15 (6-14); AST (SGOT) 26 U/L (15-37); BLOOD UREA NITROGEN 22 mg/dL (8-26); BUN/CREATININE RATIO 28 (6-20); CALCIUM 8.6 mg/dL (8.5-10.1); CARBON DIOXIDE 25 mmol/L (21-32); CHLORIDE 101 mmol/L (98-107); CREATININE 0.8 mg/dL (0.7-1.3); GFR 95.6; GLUCOSE 244 mg/dL (70-99); MAGNESIUM 1.9 mg/dL (1.8-2.4); POTASSIUM 5.1 mmol/L (3.5-5.1); SODIUM 141 mmol/L (136-145); TOTAL BILIRUBIN 0.7 mg/dL (0.2-1.0)
[2019-01-07 12:27] LABS: VAL ACID 79 mcg/mL (50-100)
[2019-01-07 12:28] LABS: TOTAL PROTEIN 6.6 g/dL (6.4-8.2)
--- NOTE | 2019-01-07 12:28 | PHYS DOC ---
Past History Past Medical History: Anxiety, CHF, Depression, Diabetes, High Cholesterol, Schizophrenia, Other Additional Past Medical Histor: BPH, delusional disorder, parkinsonism Past Medical History Limited secondary to baseline expressive aphasia Past Surgical History: No Surgical History Past Surgical History Limited secondary to baseline expressive aphasia Smoking: Quit Greater Than 1 Year Alcohol Use: None Drug Use: None Social History Limited secondary to baseline expressive aphasia Adult General Chief Complaint Chief Complaint: MULTIPLE COMPLAINTS HPI HPI 68-year-old male [facility] with report of shortness of air which started this morning. EMS reports [facility] trialed DuoNeb treatment without improvement. Patient is chronically on home O2 at 3 L nasal cannula. EMS reports O2 sat on their arrival was 85% on 3 L nasal cannula. History of recent admission for pneumonia to [place]. Patient has history of parkinsonism and has expressive aphasia at baseline. History of present illness limited secondary to baseline expressive aphasia Review of Systems Review of Systems Constitutional: Denies fever Respiratory: Reports shortness of breath Review of systems limited secondary to baseline expressive aphasia Current Medications Current Medications Current Medications Medications (Trade) Dose Ordered Sig/Supa Start Time Stop Time Status Last Admin Dose Admin Albuterol/ Ipratropium (Duoneb) 3 ml 1X ONCE 01/07/19 12:00 01/07/19 12:01 DC 01/07/19 12:06 3 ML Sodium Chloride 1,000 ml @ 1,000 mls/hr Q1H 01/07/19 11:37 01/07/19 12:36 01/07/19 12:20 1,000 MLS/HR Allergies Allergies Allergies Coded Allergies Type Severity Reaction Last Updated Verified Penicillins Allergy Intermediate 11/23/18 Yes Physical Exam Physical Exam Constitutional: Well developed, well nourished, malodorous, frail HENT: Normocephalic, atraumatic, oropharynx dry Eyes: Conjunctiva normal, no discharge Neck: Normal range of motion, no tenderness, supple Cardiovascular: Heart rate tachycardic, regular rhythm Lungs & Thorax: Bilateral breath sounds diminished at bases, scattered wheezing Abdomen: Soft, no tenderness Skin: Warm, dry, no erythema, no rash Extremities: No deformity, no edema Neurologic: Alert and oriented to name only, resting tremor to BUE (R>L) Psychologic: Judgement abnormal, unable to fully assess Current Patient Data Vital Signs Vital Signs Date Time Temp Pulse Resp B/P (MAP) Pulse Ox O2 Delivery O2 Flow Rate FiO2 01/07/19 12:08 94 Venturi Mask 12.0 Lab Results Laboratory Tests Test 01/07/19 11:24 White Blood Count 7.4 x10^3/uL (4.0-11.0) Red Blood Count 4.47 x10^6/uL (4.30-5.70) Hemoglobin 13.9 g/dL (13.0-17.5) Hematocrit 42.7 % (39.0-53.0) Mean Corpuscular Volume 96 fL (79-100) Mean Corpuscular Hemoglobin 31 pg (25-35) Mean Corpuscular Hemoglobin Concent 33 g/dL (31-37) Red Cell Distribution Width 14.3 % (11.5-14.5) Platelet Count 154 x10^3/uL (140-400) Neutrophils (%) (Auto) 81 % (31-73) H Lymphocytes (%) (Auto) 11 % (24-48) L Monocytes (%) (Auto) 9 % (0-9) Eosinophils (%) (Auto) 0 % (0-3) Basophils (%) (Auto) 0 % (0-3) Neutrophils # (Auto) 6.0 x10^3uL (1.8-7.7) Lymphocytes # (Auto) 0.8 x10^3/uL (1.0-4.8) L Monocytes # (Auto) 0.6 x10^3/uL (0.0-1.1) Eosinophils # (Auto) 0.0 x10^3/uL (0.0-0.7) Basophils # (Auto) 0.0 x10^3/uL (0.0-0.2) Troponin I Quantitative < 0.017 ng/mL (0-0.055) EKG EKG @1135 Sinus tachycardia at 141bpm, NO ST elevation, QRS 88ms, QT/QTc 304/468ms Radiology/Procedures Radiology/Procedures PROCEDURE: PORTABLE CHEST 1V PORTABLE CHEST 1V 01/07/2019 11:37 AM INDICATION: Dyspnea COMPARISON: 11/20/2018 TECHNIQUE: Portable frontal view of the chest is provided. FINDINGS: The cardiomediastinal silhouette is similar in appearance. Bilateral hilar prominence appears similar. Pulmonary vasculature appears accentuated by low lung volumes. Right sided ventriculoperitoneal shunt catheter is noted. There are no significant pleural effusions. There is no pulmonary vascular congestion. No pneumothorax. IMPRESSION: Low lung volumes limit evaluation. Bilateral hilar prominence may reflect lymphadenopathy versus vascular prominence. Aeration of lungs appears similar to the prior examination. Electronically signed by: Marilynn Whitt MD (01/07/2019 12:06 PM) [facility] PROCEDURE: CT ANGIOGRAPHY CHEST Chest CTA History: Dyspnea, hypoxia Technique: After bolus of intravenous contrast, CT imaging was performed of the chest. Multiplanar reconstruction images to include MIP reconstruction images are submitted. Exposure: One or more of the following individualized dose reduction techniques were utilized for this examination: 1. Automated exposure control 2. Adjustment of the mA and/or kV according to patient size 3. Use of iterative reconstruction technique. Comparison: November 20, 2018 Findings: Exam is limited due to poor contrast bolus in the pulmonary arteries especially more distally. There is also motion degradation. No central pulmonary embolism is identified in the main pulmonary arteries although otherwise cannot accurately evaluate for pulmonary embolic disease. There is persistent mild right lower lobe infiltrate and left lower lobe atelectasis. There is persistent focus of density anteriorly in the right upper lobe such as seen image 40 series 5 about 1.4 cm transverse, previously about 1 cm. There are trace pleural effusions greater on the right. Ascending thoracic aorta is again dilated about 4 cm. Aortic root is estimated about 4 cm. There is calcified subcarinal node. There is no pericardial fluid or pneumothorax. No significantly enlarged nodes identified of the chest. There is thoracic spondylosis. Impression: 1. Contrast bolus in the pulmonary arteries is very limited, no embolism identified in the main pulmonary arteries although otherwise cannot accurately evaluate for pulmonary embolic disease on this exam. There is again degree of right lower lobe infiltrate and left lower lobe atelectasis. There is slightly larger focus of nonspecific density of the right upper lobe anteriorly, cannot exclude a nodule in this region for which continued follow-up such as in 3 months or PET/CT advised. 2. There is some coronary calcification. 3. There is similar dilatation of the ascending thoracic aorta about 4 cm. Electronically signed by: Chalino Keller MD (01/07/2019 3:08 PM) [facility] [id number] Course & Med Decision Making Course & Med Decision Making Pertinent Labs and Imaging studies reviewed. (See chart for details) Patient with past medical history of parkinsonism who has baseline expressive aphasia presents with report of shortness of breath for years ago. History of recent pneumonia. Patient is afebrile. SIRS criteria however met with tachycardia and tachypnea. EKG with sinus tachycardia. IV fluid hydration provided. Labs obtained and posted to chart. Lactic acid greater than 4. WBC within normal limits. Chest x-ray without significant opacities however some infiltrates noted. Given positive SIRS criteria with presumed respiratory infection and lactic acid greater than 4, patient meeting criteria for septic shock. 30ml per KG IV fluid bolus given. Empiric antibiotics also provided. CTA chest without signs of PE however continued notation of lower lobe infiltrate. Patient requiring admission for further evaluation and treatment. Discussed with Dr. Moore(hospitalist) who is in agreement with admission. Dragon Disclaimer Dragon Disclaimer This electronic medical record was generated, in whole or in part, using a voice recognition dictation system. Departure Departure: Impression: Primary Impression: Septic shock Additional Impressions: Hypoxia Hx of Parkinson's disease Disposition: ADMITTED INPATIENT Admitting Physician: Martina Moore Condition: GUARDED Referrals: KATIE DAY MD (PCP) Sepsis Assessment Date and Time of Assessment Date: Jan 07, 2019 Time: 15:06 Fluid Challenge: Is the fluid challenge complet: No IBW Target Volume Used: Yes BMI > 30: Yes Vital Signs Vital Signs Vital Signs Date Time Temp Pulse Resp B/P (MAP) Pulse Ox O2 Delivery O2 Flow Rate FiO2 01/07/19 14:50 123 28 102/59 (73) 93 Simple Mask 10.0 01/07/19 11:10 99.5 Temperature Source: Oral Respirations Respiratory Effort: Shortness of air Respiratory Pattern: Tachypnea Cardiovascular Pulse Rhythm: Irregular (Tachycardic) Lung Sounds Breath Sounds: Diminished Capillary Refill Capillary Refill: Rt Hand < 3 seconds Peripheral Pulse Pulse Location: Radial Pulse Strength: Normal (2+) Pulse Assessment Method: Palpation Integumentary Skin: Warm, Dry Skin Moisture: Dry Skin Turgor: Decreased Skin Color: warm, dry Fingernail Color: WNL Critical Care Time Critical care time was 30 minutes which includes time at bedside, spent in discussion of patient's care with specialists and/or family members, with interpretation of laboratory and/or radiological studies and is exclusive of procedures. Problem Qualifiers LLUVIA CORDON DO Jan 07, 2019 12:28
[2019-01-07 12:41] LABS: BACTERIA,URINE FEW /HPF (0-FEW); BILIRUBIN,URINE SMALL (NEG); CLARITY,URINE CLEAR; COLOR,URINE AMBER; GLUCOSE,URINE NEG (NEG); HYALINE CASTS, URINE MOD /HPF; NITRITE,URINE NEG (NEG); UROBILINOGEN,URINE 1 mg/dL (0.2 mg/dL)
[2019-01-07] MEDS ORDERED: IV NORMAL SALINE 1,000ML 1,000 ML IV ONE ×3 (13:00→19:00)
[2019-01-07] MEDS ORDERED: AZTREONAM 2 GM in IV NORMAL SALINE 100ML 100 ML IV ONE (13:30)
[2019-01-07] MEDS ORDERED: VANCOMYCIN 2 GM in IV NORMAL SALINE 500ML 500 ML IV ONE (13:30)
[2019-01-07] MEDS ORDERED: IOHEXOL 350 MG/ML 100 ML VIAL. IV ONE (13:30)
--- NOTE | 2019-01-07 15:11 | RAD ---
Chest CTA History: Dyspnea, hypoxia Technique: After bolus of intravenous contrast, CT imaging was performed of the chest. Multiplanar reconstruction images to include MIP reconstruction images are submitted. Exposure: One or more of the following individualized dose reduction techniques were utilized for this examination: 1. Automated exposure control 2. Adjustment of the mA and/or kV according to patient size 3. Use of iterative reconstruction technique. Comparison: November 20, 2018 Findings: Exam is limited due to poor contrast bolus in the pulmonary arteries especially more distally. There is also motion degradation. No central pulmonary embolism is identified in the main pulmonary arteries although otherwise cannot accurately evaluate for pulmonary embolic disease. There is persistent mild right lower lobe infiltrate and left lower lobe atelectasis. There is persistent focus of density anteriorly in the right upper lobe such as seen image 40 series 5 about 1.4 cm transverse, previously about 1 cm. There are trace pleural effusions greater on the right. Ascending thoracic aorta is again dilated about 4 cm. Aortic root is estimated about 4 cm. There is calcified subcarinal node. There is no pericardial fluid or pneumothorax. No significantly enlarged nodes identified of the chest. There is thoracic spondylosis. Impression: 1. Contrast bolus in the pulmonary arteries is very limited, no embolism identified in the main pulmonary arteries although otherwise cannot accurately evaluate for pulmonary embolic disease on this exam. There is again degree of right lower lobe infiltrate and left lower lobe atelectasis. There is slightly larger focus of nonspecific density of the right upper lobe anteriorly, cannot exclude a nodule in this region for which continued follow-up such as in 3 months or PET/CT advised. 2. There is some coronary calcification. 3. There is similar dilatation of the ascending thoracic aorta about 4 cm. Electronically signed by: Chalino Keller MD (01/07/2019 3:08 PM) [facility]
[2019-01-07] MEDS ORDERED: ONDANSETRON PF 4 MG/2 ML VIAL. IV PRN (15:15)
[2019-01-07 15:28] LABS: INFLUENZA A PATIENT NEGATIVE (NEGATIVE); INFLUENZA B PATIENT NEGATIVE (NEGATIVE)
--- NOTE | 2019-01-07 15:30 | NUR ---
The patient, SHEILA MONTERO, 68 y/o, M admitted by RAKESH GERARDO MD, was given written information regarding hospital policies, unit procedures and contact persons. Valuables were checked and left with patient.
[2019-01-07] MEDS ORDERED: VANCOMYCIN PER PHARMACY MC PRN (17:30)
[2019-01-07] MEDS ORDERED: IPRA3AMP29 NEB (17:31)
[2019-01-07] MEDS ORDERED: MELA3TAB19 PO (17:36)
[2019-01-07] MEDS ORDERED: LACT100C2 PO (17:36)
[2019-01-07] MEDS ORDERED: RISP3TAB3 PO (17:41)
[2019-01-07] MEDS ORDERED: POTA20TA82 PO (17:41)
[2019-01-07] MEDS ORDERED: SENN1TAB62 PO (17:41)
--- NOTE | 2019-01-07 19:45 | EKG ---
[address] [address] Test Date: 2019-01-07 Test Time: 11:35:42 Pat Name: SHEILA MONTERO Department: Room: Gender: M [employer]: GARRET : 1950 Requested By: LLUVIA CORDON Order Number: [id number] Reading MD: Measurements Intervals [place] Rate: 141 P: [place]: QRS: -73 QRSD: 88 T: 57 QT: 304 QTc: 468 Interpretive Statements IRREGULAR RHYTHM, NO P-WAVE FOUND ABNORMAL LEFT AXIS DEVIATION R-S TRANSITION ZONE IN V LEADS DISPLACED TO THE LEFT S1,S2,S3 PATTERN LEFT ANTERIOR FASCICULAR BLOCK ABNORMAL ECG RI6.01 No previous ECG available for comparison
[2019-01-07] MEDS ORDERED: DEXTROSE 50% 25 GM / 50ML DISP.SYRIN. IV PRN (20:30)
[2019-01-07] MEDS ORDERED: DIVALPROEX ER 500 MG TAB.ER.24H PO SCH (21:00)
[2019-01-07] MEDS: IPRATRPIUM/ALBUTEROL 0.5/2.5MG 3 ML NEBU. NEB SCH (21:19)
[2019-01-07] MEDS: risperiDONE 2 MG TABLET. PO SCH (21:58)
[2019-01-07] MEDS: POTASSIUM CHLORIDE 20 MEQ TABLET.ER. PO SCH (21:58)
[2019-01-07] MEDS: MELATONIN 3 MG TABLET PO SCH (21:59)
[2019-01-07] MEDS: INSULIN GLARGINE SYRINGE. SQ SCH (22:46)
[2019-01-07] MEDS: IV NORMAL SALINE 1,000ML 1,000 ML IV SCH (22:49)
--- NOTE | 2019-01-07 22:59 | NUR ---
Pt takes meds one at a time in apple sauce for the pills that cannot be crushed. Pt prefers his meds crushed in applesauce.
[2019-01-08] VITALS (23 sets, daily range): BP systolic 102–147; BP diastolic 57–87
[2019-01-08] MEDS: IPRATRPIUM/ALBUTEROL 0.5/2.5MG 3 ML NEBU. NEB SCH ×3 (05:31→21:41)
[2019-01-08 05:52] LABS: BASO % 0 % (0-3); EOS % 0 % (0-3); HEMATOCRIT 34.2 % (39.0-53.0); HEMOGLOBIN 11.5 g/dL (13.0-17.5); LYMPH # 0.9 x10^3/uL (1.0-4.8); LYMPH % 13 % (24-48); MEAN CORPUSCULAR HEMOGLOBIN 32 pg (25-35); MEAN CORPUSCULAR HGB CONC 34 g/dL (31-37); MEAN CORPUSCULAR VOLUME 95 fL (79-100); MONO # 1.2 x10^3/uL (0.0-1.1); MONO % 17 % (0-9); NEUT # 5.2 x10^3uL (1.8-7.7); NEUT % 70 % (31-73); PLATELET COUNT 131 x10^3/uL (140-400); RED BLOOD COUNT 3.62 x10^6/uL (4.30-5.70); RED CELL DISTRIBUTION WIDTH 14.1 % (11.5-14.5); WHITE BLOOD COUNT 7.4 x10^3/uL (4.0-11.0)
[2019-01-08 06:00] LABS: ALBUMIN 2.3 g/dL (3.4-5.0); ALBUMIN/GLOBULIN RATIO 0.7 (1.0-1.7); CALCIUM 7.8 mg/dL (8.5-10.1); CREATININE 0.7 mg/dL (0.7-1.3); GFR 111.5; POTASSIUM 3.9 mmol/L (3.5-5.1); TOTAL BILIRUBIN 0.3 mg/dL (0.2-1.0); TOTAL PROTEIN 5.4 g/dL (6.4-8.2)
[2019-01-08] MEDS: IV NORMAL SALINE 1,000ML 1,000 ML IV SCH ×2 (06:29→19:00)
[2019-01-08] MEDS: VANCOMYCIN PER PHARMACY MC PRN (07:46)
--- NOTE | 2019-01-08 07:50 | NUR ---
Pharmacy Vancomycin Dosing Note S:Consulted to monitor and dose vancomycin started 01/07/19. O:SHEILA MONTERO is a 68 year old M with Sepsis, . Height: 6 feet, 4 inches Weight: 134.059693 kg [place] Body Weight: 86.80 Adjusted Body Weight: 106.04 Dosing Weight: Actual Other Antibiotics: LABS: Last BUN: 20 Last Creatinine: 0.7 Creatinine Clearance: 103.09 Last WBC: 7.4 Vancomycin Dosing: Loading Dose: 2000 mg x1 Dosing Weight: Actual Target Trough: 10-20 A: Based on: Actual weight, renal function and indication P: 1. Begin Vancomycin 2000 mg IV q12h 2. Follow up Trough level on 01/10/19 at 2030 3. Pharmacy will continue to monitor, follow and adjust therapy as needed. J LUIS CARNEY, 01/08/19 0759
[2019-01-08] MEDS: INSULIN LISPRO 300 UNITS/3 ML VIAL. SQ SCH ×3 (08:00→17:00)
--- NOTE | 2019-01-08 08:30 | NUR ---
Pt's O2 decresed to 9 LPM at 35%. Pt tolerating well with 02 saturation 95% will CTM.
[2019-01-08] MEDS: risperiDONE 2 MG TABLET. PO SCH ×2 (09:30→21:14)
[2019-01-08] MEDS: LACTOBACILLUS RHAMNOSUS GG 1 CAPSULE. PO SCH ×2 (09:30→21:14)
[2019-01-08] MEDS: POTASSIUM CHLORIDE 20 MEQ TABLET.ER. PO SCH ×3 (09:30→21:15)
[2019-01-08 10:32] LABS: BGAS PH 7.4 (7.35-7.46)
[2019-01-08] MEDS: VANCOMYCIN 2 GM in IV NORMAL SALINE 500ML 500 ML IV SCH ×2 (10:40→21:14)
[2019-01-08] MEDS ORDERED: ACETAMINOPHEN 500 MG TABLET PO ONE (11:30)
--- NOTE | 2019-01-08 12:21 | NUR ---
Pt placed on NC per RT. Pt on 4 L at this time with O2 saturation at 95% will CTM.
--- NOTE | 2019-01-08 12:46 | NUR ---
Pt noted to have swelling to R forearm, fluids held at this time. 20 G IV placed to L wrist with vanco infusing at 250ml/hr.
[2019-01-08] MEDS ORDERED: traMADol 50 MG TABLET PO PRN (14:45)
--- NOTE | 2019-01-08 15:07 | HP ---
ADMIT DATE: 01/07/2019 HISTORY OF PRESENT ILLNESS: The patient is a 68-year-old male patient, a resident at [facility] in [place], who was brought to the Emergency Room by the emergency medical service personnel from long term with report of shortness of air which started in the morning of admission. The long term trialed DuoNeb treatment without improvement. The patient is chronically on home oxygen at 3 liters per nasal cannula and his oxygen saturation on arrival was only 85% at 3 liters by nasal cannula. He was admitted recently to [facility] with pneumonia, has a history of Parkinson's disease, has expressive aphasia at baseline, so most of the history is basically obtained from the Emergency Room physician notes and from the nursing staff at the nursing facility. On arrival to the Emergency Room, the patient was extensively investigated. His lab work showed his white cell count to be normal. EKG showed that he was in sinus tachycardia. His heart rate on arrival was 141 beats per minute, no ST segment elevation. QRS duration was 88 milliseconds and corrected QT interval was 468. His chest x-ray showed bilateral hilar prominence, may reflect lymphadenopathy versus vascular prominence. Aeration of the lungs appeared similar to the prior examination. CT angio of the chest showed central fullness of the pulmonary arteries is very limited, but no embolism identified in the main pulmonary arteries, although otherwise cannot accurately evaluate for pulmonary embolic disease in this exam. There is again degree of right lower lobe infiltrate and left lower lobe atelectasis. There is slightly larger focus of nonspecific density of the right upper lobe anteriorly, cannot exclude a nodule in this region for which continued followup such as in 3 months or PET scan advised. There is some coronary calcification. There is similar dilatation of the ascending thoracic aorta to about 4 cm and therefore, the patient was admitted with acute hypoxic respiratory failure secondary to healthcare-associated pneumonia. The patient might have aspirated given the fact that he is known to have drug-induced Parkinson's disease and was started on IV antibiotic in the form of levofloxacin and was given also Azactam. The patient himself does not really give any useful information. PAST MEDICAL HISTORY: Significant for longstanding type 2 diabetes mellitus, schizoaffective disorder, expressive aphasia. He also has paranoid schizophrenia, chronic constipation, hyperlipidemia. He has also some form of functional paraplegia as he is mostly bedbound. He has also severe Parkinson's disease with functional quadriplegia and marked muscle wasting and flexion contracture. PAST SURGICAL HISTORY: Unremarkable. FAMILY HISTORY: Unobtainable. SOCIAL HISTORY: He is a long term resident. Does not smoke, drink alcohol or use recreational drugs. REVIEW OF SYSTEMS: Unobtainable. ALLERGIES: HE IS ALLERGIC TO PENICILLIN. MEDICATIONS: He is currently on following medications: He is on ipratropium bromide, albuterol sulfate by nebulizer 0.5-2.5 in 3 mL by nebulizer 4 times a day, atorvastatin calcium 20 mg at bedtime, aspirin 81 mg once a day, tramadol 50 mg p.o. every 6 hours as needed, divalproex sodium 500 mg he takes 4 tablets at bedtime, sertraline 100 mg once a day, risperidone 3 mg he takes 6 tablets twice a day, potassium chloride 20 mEq 3 times a day, furosemide 20 mg once a day, magnesium oxide 400 mg twice a day, lactobacillus acidophilus 1 capsule daily. He is on Senna-S 1 tablet once a day, metformin 1000 mg twice a day, Levemir insulin 30 units at bedtime, ergocalciferol, vitamin D2 50,000 international unit once a week, melatonin 6 mg tablet at bedtime. PHYSICAL EXAMINATION: GENERAL: On arrival to the Emergency Room, the patient was markedly tachypneic, tachycardic. Had low-grade fever. There is no pallor, jaundice, cyanosis or thyromegaly. No jugular venous distention. No lower limb edema. VITAL SIGNS: His heart rate was 143, blood pressure was 133/85, temperature was 99.5, respiratory rate was 32 and oxygen saturation was 85% on 3 liters of oxygen, his oxygen saturation improved to 94% on 12 liters of oxygen. HEAD, EYES, EARS, NOSE AND THROAT: Showed normocephalic, atraumatic. NECK: Supple. HEART: Showed normal first and second heart sounds with no gallop, rub or murmur. CHEST: Clear to auscultation. No crepitation or rhonchi. ABDOMEN: Distended, soft, nontender. NEUROLOGIC: The patient is nonverbal, has a mask face and prominent parkinsonian tremors in both upper extremities. He has functional quadriplegia. He is mostly bedbound. LABORATORY DATA: His lab work on arrival showed a white cell count 7400, hemoglobin 13.9, hematocrit 42, MCV 96, and platelet count of 154,000 with normal manual differential. His arterial blood gases showed a pH of 7.4, pCO2 of 44, pO2 of 69, bicarbonate 27 and oxygen saturation was 93% on FiO2 of 35%. His urinalysis was essentially unremarkable. His toxic screen showed that valproic acid was 79 mcg/mL with the normal range between 50-100. His influenza A and B were negative. His chest x-ray showed that the patient's cardiomediastinal silhouette is similar in appearance. Bilateral hilar prominence appears similar. Pulmonary vasculature appears accentuated by low lung volumes. Right sided ventriculoperitoneal shunt catheter is noted. There are no significant pleural effusions. There is no pulmonary vascular congestion or pneumothorax. CT angiography of the chest showed that the patient has no central pulmonary emboli; however, there is a degree of right lower lobe infiltrate and left lower lobe atelectasis. There is slightly larger focus of nonspecific density of the right upper lobe anteriorly, cannot exclude a nodule in this region for which continued followup such as in 3 months for a PET scan advised. There is some coronary calcification. There is similar dilatation of the ascending thoracic aorta to about 4 cm. The patient was admitted with sepsis and lactic acidosis. In fact his lactic acid on arrival was 4.4 and went up to 6.8. His chemistry showed a serum sodium 141, potassium 5.1, chloride 101, bicarbonate 25, anion gap of 15, BUN 22, creatinine 0.8, estimated GFR was 95 mL per minute. His glucose was 144, calcium was 8.6, magnesium 1.9. Total bilirubin, AST, ALT, alkaline phosphatase were normal. Total protein was 6.6, albumin was 2.8. He has received a total of 2 liters of fluid and the third one on arrival to the ICU and was given antibiotics, keeping in mind that he has ALLERGY TO PENICILLIN. He did receive levofloxacin and vancomycin. FINAL ADMISSION DIAGNOSES: 1. Acute hypoxic respiratory failure. 2. Healthcare-associated pneumonia. 3. Advanced Parkinson's disease with functional quadriplegia. 4. Type 2 diabetes mellitus. RAKESH GERARDO MD DR: EMANUEL/ruby JOB#: [id number] / [id number]
--- NOTE | 2019-01-08 18:33 | RAD ---
Examination: Ultrasound right upper extremity venous duplex HISTORY: History of right arm swelling COMPARISON: None available. TECHNIQUE: Grayscale, color Doppler 2-D, spectral waveform is in the right upper extremity venous system were performed FINDINGS: The internal jugular vein, subclavian vein, cephalic vein, basilic vein, radial, ulnar veins are patent The axillary vein appears paired and there is echogenicity identified in the anterior branch axillary vein likely deep venous thrombosis extending into the brachial vein. IMPRESSION: Deep venous thrombosis identified in the anterior branch of the axillary vein extending into the brachial vein. FOR INTERNAL CODING PURPOSES Critical result: Findings discussed with patient nurse at 01/08/2019 6:30 PM. RESULT CODE: (C) Electronically signed by: Parvez Linares MD (01/08/2019 6:31 PM) [facility]
[2019-01-08] MEDS: MAGNESIUM OXIDE 400 MG TABLET PO SCH (21:14)
[2019-01-08] MEDS: APIXABAN 5 MG TABLET. PO SCH (21:14)
[2019-01-08] MEDS: MELATONIN 3 MG TABLET PO SCH (21:14)
[2019-01-08] MEDS: DIVALPROEX 125 MG CAP.SPRINK PO SCH (21:15)
[2019-01-08] MEDS: ATORVASTATIN CALCIUM 20 MG TABLET PO SCH (21:15)
[2019-01-08] MEDS: NYSTATIN TOPICAL POWDER 15GM BOTTLE. TP SCH (21:16)
[2019-01-08] MEDS: INSULIN GLARGINE SYRINGE. SQ SCH (21:32)
--- NOTE | 2019-01-08 22:29 | PN ---
DATE: 01/08/2019 SUBJECTIVE: The patient is resting, slightly propped up in bed, in no apparent respiratory distress. He is awake, alert, opens eyes, tracks, but he is nonverbal. The nursing staff are concerned that his right upper extremity is markedly swollen compared to the left, continued to have low-grade fever. PHYSICAL EXAMINATION: GENERAL: When I examined him, he looked pale, but not jaundiced, cyanosed, or thyromegaly. No jugular venous distension. No lower limb edema. VITAL SIGNS: Her heart rate was 105, blood pressure was 145/80, temperature was 99.2, respiratory rate was 18 and oxygen saturation was 94% on 5 liters of oxygen. HEAD, EYES, EARS, NOSE AND THROAT: Showed normocephalic, atraumatic. NECK: Supple. HEART: Showed normal first and second heart sounds with no gallop, rub or murmur. CHEST: Clear to auscultation. No crepitation or rhonchi. ABDOMEN: Markedly distended, soft, nontender. NEUROLOGIC: He is awake, alert, opens his eyes, tracks, but does not respond verbally. Has a mask face and prominent parkinsonian tremors in both upper extremities. The right upper extremity is more swollen than the left. I did not see any swelling of his lower extremities. He has functional quadriplegia. His intake was 2750, output was 1325. LABORATORY DATA: Her lab work this morning showed a white cell count 7400, hemoglobin 11.5, hematocrit 34, MCV 95, and platelet count of 131,000. His chemistry today showed that his serum sodium was 142, potassium 3.9, chloride 106, bicarbonate 28, anion gap of 8, BUN 20, creatinine 0.7, estimated GFR was 111, glucose 179, lactic acid was 2.2, calcium was 7.8. Total bilirubin, AST, ALT, alkaline phosphatase were normal. Total protein was 5.4, albumin 2.3. ASSESSMENT: 1. Acute hypoxic respiratory failure, improving. 2. Healthcare-associated pneumonia for which he was treated with Levaquin and vancomycin. I will switch him to meropenem. 3. Other medical problems include severe Parkinson disease with functional quadriplegia. 4. Type 2 diabetes mellitus. 5. Paranoid schizophrenia. RAKESH GERARDO MD DR: EMANUEL/ruby JOB#: [id number] / [id number]
[2019-01-09] VITALS (22 sets, daily range): BP systolic 112–154; BP diastolic 39–85
[2019-01-09] MEDS: MEROPENEM 1 GM in IV NORMAL SALINE 100ML 100 ML IV SCH ×4 (00:03→23:05)
[2019-01-09] MEDS: IV NORMAL SALINE 1,000ML 1,000 ML IV SCH (03:03)
[2019-01-09] MEDS: IPRATRPIUM/ALBUTEROL 0.5/2.5MG 3 ML NEBU. NEB SCH ×2 (05:33→21:49)
[2019-01-09 06:45] LABS: HEMATOCRIT 34.9 % (39.0-53.0); HEMOGLOBIN 11.7 g/dL (13.0-17.5); RED BLOOD COUNT 3.7 x10^6/uL (4.30-5.70); RED CELL DISTRIBUTION WIDTH 13.9 % (11.5-14.5); WHITE BLOOD COUNT 5.9 x10^3/uL (4.0-11.0)
[2019-01-09 06:56] LABS: ALBUMIN 2.3 g/dL (3.4-5.0); ALBUMIN/GLOBULIN RATIO 0.7 (1.0-1.7); CALCIUM 8.3 mg/dL (8.5-10.1); CREATININE 0.5 mg/dL (0.7-1.3); GFR 164.4; POTASSIUM 3.9 mmol/L (3.5-5.1); TOTAL BILIRUBIN 0.4 mg/dL (0.2-1.0); TOTAL PROTEIN 5.6 g/dL (6.4-8.2)
[2019-01-09] MEDS: INSULIN LISPRO 300 UNITS/3 ML VIAL. SQ SCH ×3 (08:00→17:10)
[2019-01-09] MEDS: MAGNESIUM OXIDE 400 MG TABLET PO SCH ×2 (08:45→21:03)
[2019-01-09] MEDS: POTASSIUM CHLORIDE 20 MEQ TABLET.ER. PO SCH ×3 (08:45→21:03)
[2019-01-09] MEDS: ASPIRIN ENTERIC COATED 81 MG TABLET.DR. PO SCH (08:45)
[2019-01-09] MEDS: SERTRALINE 100 MG TABLET. PO SCH (08:45)
[2019-01-09] MEDS: LACTOBACILLUS RHAMNOSUS GG 1 CAPSULE. PO SCH ×2 (08:45→21:03)
[2019-01-09] MEDS: risperiDONE 2 MG TABLET. PO SCH ×2 (08:46→21:04)
[2019-01-09] MEDS: APIXABAN 5 MG TABLET. PO SCH ×2 (08:48→21:03)
[2019-01-09] MEDS: VANCOMYCIN 2 GM in IV NORMAL SALINE 500ML 500 ML IV SCH ×2 (08:48→21:05)
[2019-01-09] MEDS: NYSTATIN TOPICAL POWDER 15GM BOTTLE. TP SCH ×2 (08:50→21:06)
[2019-01-09] MEDS ORDERED: NON FORMULARY ITEM (Lactobacillus Acidophilus (Acidophilus) 1 CAP) PO SCH (09:00)
[2019-01-09] MEDS: DIVALPROEX 125 MG CAP.SPRINK PO SCH (21:04)
[2019-01-09] MEDS: MELATONIN 3 MG TABLET PO SCH (21:04)
[2019-01-09] MEDS: ATORVASTATIN CALCIUM 20 MG TABLET PO SCH (21:04)
[2019-01-09] MEDS: INSULIN GLARGINE SYRINGE. SQ SCH (21:09)
[2019-01-10] VITALS (16 sets, daily range): BP systolic 107–155; BP diastolic 32–72
--- NOTE | 2019-01-10 03:09 | PN ---
DATE: 01/09/2019 SUBJECTIVE: The patient is resting, almost flat in bed, in no apparent distress, awake, alert, opens his eyes, tracks and nods his head. He is mostly nonverbal. Nursing staff did not voice any concern except that his left upper extremity slightly swollen. We did a venous Doppler ultrasound of his right upper extremity and it showed that he had deep vein thrombosis identified in the anterior branch of the axillary vein extending into the brachial vein and we did start him on Eliquis 10 mg twice a day. PHYSICAL EXAMINATION: GENERAL: When I examined him, he looked well and was clearly in no apparent respiratory distress, slightly pale, but no jaundice, cyanosis or thyromegaly. No jugular venous distention. No limb edema. VITAL SIGNS: His heart rate was 83, blood pressure was 138/74, temperature was 99, respiratory rate was 19 and oxygen saturation was 93% on 3 liters of oxygen. HEAD, EYES, EARS, NOSE AND THROAT: Showed normocephalic, atraumatic. NECK: Supple. HEART: Showed normal first and second heart sounds with no gallop, rub or murmur. CHEST: Clear to auscultation. No crepitation or rhonchi. ABDOMEN: Distended, soft, nontender. NEUROLOGIC: He is awake, alert, opens his eyes, tracks and nods his head, but he is mostly nonverbal. He has functional quadriplegia. He is mostly bed bound, wheelchair bound. His intake over the last 24 hours was 2750, output was 1525 hours. LABORATORY DATA: Showed a white cell count 5900, hemoglobin 11.7, hematocrit 34.9, MCV 94 and platelet count of 136,000. Serum sodium of 141, potassium 3.9, chloride 105, bicarbonate 28, anion gap of 8, BUN 16, creatinine 0.5, estimated GFR was 164 mL per minute, his glucose at 216, calcium was 8.3. Total bilirubin, AST, ALT, alkaline phosphatase were normal. Total protein was 5.6, albumin 2.3. ASSESSMENT: 1. Healthcare-associated pneumonia for which he is now on Levaquin and vancomycin. I did switch him to meropenem yesterday. 2. Acute hypoxic respiratory failure. 3. Other medical problems include: A. Severe Parkinson's disease with functional quadriplegia. B. Type 2 diabetes mellitus. C. Paranoid schizophrenia. PLAN: To continue with IV antibiotic. I would discontinue his IV fluids. RAKESH GERARDO MD DR: EMANUEL/ruby JOB#: [id number] / [id number]
[2019-01-10] MEDS: MEROPENEM 1 GM in IV NORMAL SALINE 100ML 100 ML IV SCH ×3 (05:36→23:02)
--- NOTE | 2019-01-10 07:30 | NUR ---
Wound Care Wound care consult for multiple wounds. Pt has healing DTI/DFU to left heel, painted with Betadine and covered with foam. Pt also has DFU to right lateral foot, applied Xeroform and foam. No other wounds noted at this time. Discussed POC with RN. WC will continue to follow for possible changes.
[2019-01-10] MEDS: APIXABAN 5 MG TABLET. PO SCH ×2 (08:46→23:02)
[2019-01-10] MEDS: POTASSIUM CHLORIDE 20 MEQ TABLET.ER. PO SCH ×3 (08:46→23:02)
[2019-01-10] MEDS: MAGNESIUM OXIDE 400 MG TABLET PO SCH ×2 (08:46→23:03)
[2019-01-10] MEDS: SERTRALINE 100 MG TABLET. PO SCH (08:46)
[2019-01-10] MEDS: ASPIRIN ENTERIC COATED 81 MG TABLET.DR. PO SCH (08:46)
[2019-01-10] MEDS: LACTOBACILLUS RHAMNOSUS GG 1 CAPSULE. PO SCH ×2 (08:46→23:02)
[2019-01-10] MEDS: risperiDONE 2 MG TABLET. PO SCH ×2 (08:49→23:03)
[2019-01-10] MEDS: VANCOMYCIN 2 GM in IV NORMAL SALINE 500ML 500 ML IV SCH (08:53)
[2019-01-10] MEDS: NYSTATIN TOPICAL POWDER 15GM BOTTLE. TP SCH ×2 (08:56→23:03)
[2019-01-10] MEDS: INSULIN LISPRO 300 UNITS/3 ML VIAL. SQ SCH ×3 (09:07→17:50)
[2019-01-10] MEDS: IPRATRPIUM/ALBUTEROL 0.5/2.5MG 3 ML NEBU. NEB SCH ×2 (09:33→20:18)
[2019-01-10] MEDS: metFORMIN 500 MG TABLET PO SCH (17:46)
--- NOTE | 2019-01-10 18:44 | NUR ---
came to assess pt for a PICC line, pt currently has blood clot in right arm, infiltration in left hand from PIV, just today blood cultures came back pos for staph, started two PIV in LFA, one accucath in deeper vessel and a 22g in a more shallow vessel. good blood return and flush in each.
--- NOTE | 2019-01-10 19:56 | PN ---
DATE: 01/10/2019 SUBJECTIVE: The patient is resting, slightly propped up in bed, in no apparent distress. He is definitely more awake, alert and in fact he actually spokes few words for the first time. On questioning him, he denied any complaint. Nursing staff just concerned about the marked swelling of both upper extremities. PHYSICAL EXAMINATION: GENERAL: When I examined him, he looked pale, no jaundice, cyanosis or thyromegaly. No jugular venous distention. No lower limb edema. VITAL SIGNS: Her heart rate was 100, blood pressure was 110/37, temperature was 98.4, respiratory rate was 16, and oxygen saturation was 95% on 3 liters of oxygen. HEAD, EYES, EARS, NOSE AND THROAT: Showed normocephalic, atraumatic. NECK: Supple. HEART: Showed normal first and second heart sounds. No gallop or murmur. CHEST: Clear to auscultation. No crepitation or rhonchi. ABDOMEN: Distended, soft, nontender. NEUROLOGIC: He is awake, alert, responding appropriately. All cranial nerves are intact. He has functional quadriplegia due to advanced Parkinson disease. He is bedbound, chair bound. He has a Natacha lift for the transfers. His intake over the last 24 hours was 2800, output was 2000. LABORATORY DATA: His most recent chemistry showed a white cell count 5900, hemoglobin 12, hematocrit 35, MCV 94 and platelet count of 136,000. His chemistry showed a serum sodium 141, potassium 3.9, chloride 105, bicarbonate 28, anion gap of 8, BUN 16, creatinine 0.5, estimated GFR was 164. Glucose was 216, calcium was 8.3. Total bilirubin, AST, ALT, alkaline phosphatase were normal. Total protein is 5.6 and albumin 2.3. ASSESSMENT: 1. Healthcare-associated pneumonia for which he is now on Levaquin and vancomycin. His blood culture has grown gram-positive cocci suggestive of Staph. 2. Acute hypoxic respiratory failure. 3. He has multiple other medical problems including: A. Severe Parkinson disease with functional quadriplegia. B. Type 2 diabetes mellitus. C. Paranoid schizophrenia. PLAN: To continue with the patient probably needs a midline placement and will need obviously to await for the identification and sensitivity before we discharge the patient. RAKESH GERARDO MD DR: Hilaria JOB#: [id number] / [id number]
[2019-01-10 21:15] LABS: VANC TR 23.7 mcg/mL (10.0-20.0)
[2019-01-10] MEDS: VANCOMYCIN PER PHARMACY MC PRN (21:39)
--- NOTE | 2019-01-10 21:40 | NUR ---
Pharmacy Vancomycin Dosing Note S:Consulted to monitor and dose vancomycin started 01/07/19. O:SHEILA MONTERO is a 68 year old M with HCAP, . Height: 6 feet, 4 inches Weight: 145.046016 kg [place] Body Weight: 86.80 Adjusted Body Weight: 110.08 Dosing Weight: Actual Other Antibiotics: MEROPENEM 1GRAM Q8HRS LABS: Last BUN: 16 Last Creatinine: 0.5 Creatinine Clearance: 103.09 Last WBC: 5.9 Last Procalcitonin: Tmax (past 24 hours): Microbiology: I/O: Drug Levels: Last Trough level: 23.7 on 01/10/19 at 2030 Last dose given 01/10/19 at 0900 Vancomycin Dosing: Loading Dose: 2000 mg x1 Dosing Weight: Actual Target Trough: 15-20 A: Based on: P: 1. Hold Vancomycin 2000 mg IV q12h will redose pending random level 2. Follow up Random level on 01/11/19 at 0830 3. Pharmacy will continue to monitor, follow and adjust therapy as needed. ZAC RAMESH [facility], 01/10/19 0127
[2019-01-10] MEDS: ATORVASTATIN CALCIUM 20 MG TABLET PO SCH (23:02)
[2019-01-10] MEDS: SENNOSIDES/DOCUSATE 8.6/50MG TABLET. PO PRN (23:02)
[2019-01-10] MEDS: MELATONIN 3 MG TABLET PO SCH (23:02)
[2019-01-10] MEDS: DIVALPROEX 125 MG CAP.SPRINK PO SCH (23:03)
[2019-01-10] MEDS: INSULIN GLARGINE SYRINGE. SQ SCH (23:05)
[2019-01-11] VITALS (10 sets, daily range): BP systolic 112–151; BP diastolic 46–75
[2019-01-11] MEDS: MEROPENEM 1 GM in IV NORMAL SALINE 100ML 100 ML IV SCH ×3 (05:37→21:45)
[2019-01-11] MEDS: LACTOBACILLUS RHAMNOSUS GG 1 CAPSULE. PO SCH ×2 (08:23→21:45)
[2019-01-11] MEDS: POTASSIUM CHLORIDE 20 MEQ TABLET.ER. PO SCH ×3 (08:23→21:45)
[2019-01-11] MEDS: MAGNESIUM OXIDE 400 MG TABLET PO SCH ×2 (08:23→21:46)
[2019-01-11] MEDS: ASPIRIN ENTERIC COATED 81 MG TABLET.DR. PO SCH (08:23)
[2019-01-11] MEDS: risperiDONE 2 MG TABLET. PO SCH ×2 (08:24→21:46)
[2019-01-11] MEDS: SERTRALINE 100 MG TABLET. PO SCH (08:24)
[2019-01-11] MEDS: metFORMIN 500 MG TABLET PO SCH ×2 (08:24→17:18)
[2019-01-11] MEDS: APIXABAN 5 MG TABLET. PO SCH ×2 (08:24→21:46)
[2019-01-11] MEDS: NYSTATIN TOPICAL POWDER 15GM BOTTLE. TP SCH ×2 (08:25→21:47)
[2019-01-11] MEDS: INSULIN LISPRO 300 UNITS/3 ML VIAL. SQ SCH ×4 (08:26→17:57)
[2019-01-11] MEDS ORDERED: VANCOMYCIN RANDOM LEVEL. MC ONE (08:30)
[2019-01-11 09:03] LABS: HEMATOCRIT 37.6 % (39.0-53.0); HEMOGLOBIN 12.5 g/dL (13.0-17.5); RED BLOOD COUNT 3.98 x10^6/uL (4.30-5.70); RED CELL DISTRIBUTION WIDTH 14.2 % (11.5-14.5); WHITE BLOOD COUNT 7.1 x10^3/uL (4.0-11.0)
[2019-01-11] MEDS: IPRATRPIUM/ALBUTEROL 0.5/2.5MG 3 ML NEBU. NEB SCH ×2 (09:15→20:58)
[2019-01-11 09:20] LABS: ALBUMIN 2.2 g/dL (3.4-5.0); ALBUMIN/GLOBULIN RATIO 0.6 (1.0-1.7); CALCIUM 8.2 mg/dL (8.5-10.1); CREATININE 0.6 mg/dL (0.7-1.3); GFR 133.2; POTASSIUM 4.1 mmol/L (3.5-5.1); TOTAL BILIRUBIN 0.5 mg/dL (0.2-1.0); TOTAL PROTEIN 5.8 g/dL (6.4-8.2)
[2019-01-11] MEDS: VANCOMYCIN PER PHARMACY MC PRN ×2 (10:59→11:56)
--- NOTE | 2019-01-11 11:56 | NUR ---
Pharmacy Vancomycin Dosing Note S:Consulted to monitor and dose vancomycin started 01/07/19. O:SHEILA MONTERO is a 68 year old M with HCAP, . Height: 6 feet, 4 inches Weight: 144.808152 kg [place] Body Weight: 86.80 Adjusted Body Weight: 110.08 Dosing Weight: Actual Other Antibiotics: MEROPENEM 1GRAM Q8HRS LABS: Last BUN: 10 Last Creatinine: 0.6 Creatinine Clearance: 106 Last WBC: 7.1 Last Procalcitonin: Tmax (past 24 hours): 98.4 Microbiology: I/O: 2317/1525 Drug Levels: Last Random level: 16.4 on 01/11/19 at 0845 Last dose given 01/10/19 at 0900 Vancomycin Dosing: Loading Dose: 2000 mg x1 Dosing Weight: Actual Target Trough: 15-20 A: Based on: ELEVATED TROUGH P: 1. Begin Vancomycin 1500 mg IV q12h 2. Follow up Trough level on 01/13/19 at 1130 3. Pharmacy will continue to monitor, follow and adjust therapy as needed. CHATA MELGOZA, [facility], 01/11/19 [id number]
[2019-01-11] MEDS: VANCOMYCIN 1.5 GM in IV NORMAL SALINE 500ML 500 ML IV SCH (13:08)
--- NOTE | 2019-01-11 16:56 | PN ---
DATE: 01/11/2019 SUBJECTIVE: The patient is resting, slightly propped up in bed, in no apparent distress. He is definitely more awake, alert, opens eyes, tracks and occasionally mouths some words. The nursing staff did not voice any concerns that he had an uneventful night. PHYSICAL EXAMINATION: GENERAL: When I examined him, he looked pale, but no jaundice, cyanosis or thyromegaly. No jugular venous distention. No lower limb edema. VITAL SIGNS: Her heart rate was 92, blood pressure was 125/55, temperature was 97.6, respiratory rate was 18 and oxygen saturation was 97% on 3 liters of oxygen. HEAD, EYES, EARS, NOSE AND THROAT: Showed normocephalic, atraumatic. NECK: Supple. CARDIAC: Normal first and second heart sounds. No gallop or murmur. CHEST: Clear to auscultation. No crepitation or rhonchi. ABDOMEN: Distended, soft, nontender. No guarding or rigidity. No organomegaly. All hernial orifices intact. Bowel sounds normal. NEUROLOGIC: He is definitely awake, alert, responding appropriately, sometimes he nods his head, occasionally mouths some words. All his cranial nerves are intact. He has functional quadriplegia. He is mostly bedbound, chair bound. He has a Natacha lift. GENITOURINARY: He has an indwelling [place] catheter. His intake over the last 24 hours was 2800, output was 2000. LABORATORY DATA: As of this morning, his serum sodium was 141, potassium 4.1, chloride 104, bicarbonate 32, anion gap of 5, BUN 10, creatinine 0.6, estimated GFR was 133 mL per minute. His glucose was 122, calcium was 8.2. Total bilirubin, AST, ALT, alkaline phosphatase were normal. Total protein was 5.8, albumin 2.2. His white cell count 7000, hemoglobin 12, hematocrit 37, MCV 95, and platelet count of 153,000. ASSESSMENT: 1. Healthcare-associated pneumonia, for which he is on Levaquin and vancomycin. His blood cultures have grown gram-positive cocci suggestive of Staph. The identification and sensitivity is still pending. 2. Acute hypoxic respiratory failure. 3. He has multiple other medical problems including: A. Severe Parkinson disease with functional quadriplegia. B. Type 2 diabetes mellitus. C. Paranoid schizophrenia. PLAN: To continue with IV antibiotic, continue to monitor blood sugar and adjust insulin as needed. We will wait for the culture and sensitivity and decide on further management accordingly. RAKESH GERARDO MD DR: EMANUEL/ruby JOB#: [id number] / [id number]
[2019-01-11] MEDS ORDERED: FUROSEMIDE 40 MG/4 ML VIAL IVP ONE (20:00)
[2019-01-11] MEDS: DIVALPROEX 125 MG CAP.SPRINK PO SCH (21:45)
[2019-01-11] MEDS: SENNOSIDES/DOCUSATE 8.6/50MG TABLET. PO PRN (21:46)
[2019-01-11] MEDS: MELATONIN 3 MG TABLET PO SCH (21:46)
[2019-01-11] MEDS: ATORVASTATIN CALCIUM 20 MG TABLET PO SCH (21:46)
[2019-01-11] MEDS: INSULIN GLARGINE SYRINGE. SQ SCH (21:48)
[2019-01-12] MEDS: VANCOMYCIN 1.5 GM in IV NORMAL SALINE 500ML 500 ML IV SCH ×2 (00:16→11:46)
[2019-01-12 01:00] VITALS: BP 114/91
[2019-01-12 04:00] VITALS: BP 132/50
[2019-01-12] MEDS: MEROPENEM 1 GM in IV NORMAL SALINE 100ML 100 ML IV SCH ×2 (05:42→14:00)
[2019-01-12] MEDS: IPRATRPIUM/ALBUTEROL 0.5/2.5MG 3 ML NEBU. NEB SCH (06:21)
[2019-01-12 07:02] LABS: CREATININE 0.5 mg/dL (0.7-1.3); GFR 164.4
[2019-01-12] MEDS: POTASSIUM CHLORIDE 20 MEQ TABLET.ER. PO SCH ×2 (08:35→14:54)
[2019-01-12] MEDS: MAGNESIUM OXIDE 400 MG TABLET PO SCH (08:35)
[2019-01-12] MEDS: APIXABAN 5 MG TABLET. PO SCH (08:35)
[2019-01-12] MEDS: LACTOBACILLUS RHAMNOSUS GG 1 CAPSULE. PO SCH (08:35)
[2019-01-12] MEDS: SERTRALINE 100 MG TABLET. PO SCH (08:35)
[2019-01-12] MEDS: ASPIRIN ENTERIC COATED 81 MG TABLET.DR. PO SCH (08:35)
[2019-01-12] MEDS: metFORMIN 500 MG TABLET PO SCH ×2 (08:35→17:27)
[2019-01-12] MEDS: risperiDONE 2 MG TABLET. PO SCH (08:36)
[2019-01-12] MEDS: INSULIN LISPRO 300 UNITS/3 ML VIAL. SQ SCH ×3 (08:48→17:27)
[2019-01-12] MEDS: NYSTATIN TOPICAL POWDER 15GM BOTTLE. TP SCH (09:07)
--- NOTE | 2019-01-12 10:00 | NUR ---
Patient doing well today, awaitng for dr meneses to see patient to decide if he plans to discharge home to [facility]. Patient sitting up watching tv and talking with staff more today. Right arm edema remains due to blood clot. Continue to reposition and turn patient q2h. Denies complaints at this time.
[2019-01-12 10:29] VITALS: BP 128/62
[2019-01-12] MEDS ORDERED: LINE600T12 PO (14:32)
[2019-01-12] MEDS ORDERED: APIX5TAB5 PO (14:32)
--- NOTE | 2019-01-12 14:35 | DISCH ---
DISCHARGE ORDERS DISCHARGE DATE: Jan 12, 2019 FINAL DIAGNOSIS HCAP Acute hypoxic respiratory failure RUE DVT CONDITION AT DISCHARGE: Stable Code Status: Full SNF STAY <30 DAYS: No POST DISCHARGE ORDERS: ACTIVITY ORDERS: Resume previous activity DIET AFTER DISCHARGE: Cardiac TREATMENT/EQUIPMENT ORDERS: RESPIRATORY EQUIPMENT: Oxygen DISCHARGE MEDICATIONS: Home Meds Active Scripts Apixaban (Eliquis) 5 Mg Tab.ds.pk, 5 MG PO BID for dvt for 30 Days, #60 PKG Prov:RAKESH GERARDO MD 01/12/19 Linezolid (ZYVOX) 600 Mg Tablet, 600 MG PO BID for hcap for 7 Days, #14 TAB Prov:RAKESH GERARDO MD 01/12/19 Reported Medications Sennosides/Docusate Sodium (SENNA PLUS TABLET) 1 Each Tablet, 1 TAB PO PRN BID PRN for CONSTIPATION for 20 Days, TAB 0 Refills 01/07/19 Risperidone (RISPERIDONE) 3 Mg Tablet, 2 TAB PO BID for schizophrenia, #60 TAB 2 Refills 01/07/19 Potassium Chloride (POTASSIUM CHLORIDE) 20 Meq Tablet.er, 1 TAB PO TID for supplement for 30 Days, #90 TAB 0 Refills 01/07/19 Melatonin (MELATONIN) 3 Mg Tablet.er, 2 TAB PO QHS for sleep for 30 Days, #60 TAB 0 Refills 01/07/19 Lactobacillus Acidophilus (Acidophilus) 100 Mg Capsule, 1 CAP PO DAILY for probiotic for 30 Days, #30 CAP 0 Refills 01/07/19 Ipratropium/Albuterol Sulfate (DUONEB 0.5-3(2.5) MG/3 ML) 3 Ml Ampul.neb, 3 ML NEB RTBID for shortness of air, EACH 01/07/19 Sertraline Hcl (ZOLOFT) 100 Mg Tablet, 100 MG PO DAILY for ANTI-DEPRESSANT, TAB 0 Refills 11/21/18 Metformin Hcl (METFORMIN HCL) 1,000 Mg Tablet, 1000 MG PO BID for ANTI-DIABETIC, TAB 0 Refills 11/21/18 Magnesium Oxide (MAGNESIUM) 400 Mg Capsule, 1 CAP PO BID for supplement, #180 CAP 3 Refills 11/21/18 Insulin Detemir (Levemir Flextouch) 100 Unit/1 Ml Insuln.pen, 30 UNIT SQ HS for diabetes, SYR 11/21/18 Furosemide (LASIX) 20 Mg Tablet, 1 TAB PO DAILY for heart failure, #90 TAB 1 Refill 11/21/18 Ergocalciferol (Vitamin D2) (VITAMIN D2) 50,000 Unit Capsule, 72868 UNIT PO WEEKLY for supplement, CAP 11/21/18 Divalproex Sodium (DEPAKOTE ER) 500 Mg Tab.er.24h, 4 TAB PO QHS for mood, #90 TAB 2 Refills 11/21/18 Atorvastatin Calcium (ATORVASTATIN CALCIUM) 20 Mg Tablet, 20 MG PO QHS for FOR CHOLESTEROL, #30 TAB 0 Refills 11/21/18 Aspirin (ASPIR-LOW) 81 Mg Tablet.dr, 1 TAB PO DAILY for supplement, #30 TAB 3 Refills 11/21/18 Discontinued Reported Medications Tramadol Hcl (TRAMADOL HCL) 50 Mg Tablet, 50 MG PO PRN Q6HRS PRN for PAIN, TAB 11/21/18 RAKESH GERARDO MD Jan 12, 2019 14:35
[2019-01-12 16:00] VITALS: BP 128/62
--- NOTE | 2019-01-12 18:10 | NUR ---
Patient left via EMS with belongings. Wound pictures completed upon discharge. IVs removed. Report given to [facility] and verbalized DC instructions, will be started on PO antibiotics.
--- NOTE | 2019-01-12 22:43 | DS ---
DATE OF DISCHARGE: 01/12/2019 HOSPITAL COURSE: The patient is a 68-year-old male patient, a resident at [facility] in [place], who was brought to the Emergency Room with shortness of air, started the morning of admission. The group home trialed DuoNeb treatment without improvement. The patient is chronically on home oxygen at 3 liters by nasal cannula and his oxygen saturation on arrival was only 85%. He was evaluated in the Emergency Room, was diagnosed with healthcare-associated pneumonia and started on healthcare-associated pneumonia protocol. While in the hospital, it was noted that his right upper extremity markedly swollen and venous Doppler ultrasound showed that he has deep vein thrombosis involving the right axillary vein. However, CT angio of the chest was negative for pulmonary embolism, but did confirm our clinical suspicion that he has right lower lobe infiltrate and left lower lobe atelectasis. He was treated with IV antibiotic in the form of vancomycin and meropenem as he is ALLERGIC TO PENICILLIN and he did actually very well. His white cell count remained stable. His blood culture has grown gram-positive cocci suggestive of Staph. The final result showed the patient has grown coagulase-negative Staphylococcus species, resistant to oxacillin and therefore, the patient was switched to Zyvox and was discharged to finish the course of treatment for 7 more days. PHYSICAL EXAMINATION: GENERAL: When I saw him this afternoon, he looked well and was clearly in no apparent respiratory distress. No pallor, jaundice, cyanosis or thyromegaly. No jugular venous distention. No limb edema. VITAL SIGNS: His heart rate was 102, blood pressure was 128/62, temperature was 97.4, respiratory rate was 18, and oxygen saturation was 92% on 3 liters of oxygen. The rest of clinical exam is stable, has not really changed. His intake over the last 24 hours was 2740, output was 3600. LABORATORY DATA: As of yesterday, his white cell count was 7100, hemoglobin 12, hematocrit 37, MCV 95, and platelet count 253,000. His chemistry showed a serum sodium 141, potassium 4.1, chloride 104, bicarbonate 32, anion gap of 5, BUN 10, creatinine 0.6, estimated GFR was 33 mL per minute. His glucose was 222, calcium was 8.2. Total bilirubin, AST, ALT, alkaline phosphatase were normal. Total protein was 5.8. Albumin 2.2. DISCHARGE MEDICATIONS: He was discharged back to [facility] in [place] to continue on apixaban 5 mg twice a day, linezolid for Zyvox 600 mg twice a day for 7 days, aspirin 81 mg once a day, atorvastatin calcium 20 mg at bedtime, divalproex 2000 mg p.o. at bedtime, ergocalciferol vitamin D2 50,000 international unit once a week, furosemide 20 mg once a day, detemir insulin 30 units at bedtime, ipratropium bromide and albuterol sulfate 0.5-2.5 mg 3 mL by nebulizer 4 times a day, lactobacillus acidophilus 1 capsule once a day, magnesium oxide 400 mg twice a day, melatonin 6 mg at bedtime, metformin 1000 mg twice a day, potassium chloride 20 mEq 3 times a day, risperidone 6 mg twice a day, senna-S 1 capsule twice a day and sertraline for Zoloft 100 mg daily. Tramadol should be discontinued while he is on Zyvox and once he completes the course of treatment, it can be resumed. FINAL DISCHARGE DIAGNOSES: 1. Acute hypoxic respiratory failure. 2. Healthcare-associated pneumonia with growth of coagulase-negative Staph epidermidis. 3. Deep vein thrombosis involving the right upper extremity, for which he was started on apixaban. 4. He has multiple other medical problems including: A. Severe Parkinson's disease with functional quadriplegia. B. Type 2 diabetes mellitus. C. Paranoid schizophrenia. RAKESH GERARDO MD DR: EMANUEL/ruby JOB#: [id number] / [id number]
[2019-01-15] MEDS ORDERED: CHOLECALCIFEROL (VITAMIN D3) 50,000 UNIT CAPSULE PO SCH (09:00)
== END 2019-01-12 18:10 | DRG 871 ==
LOC: ER 11:09 → ICU 15:25
PROVIDERS: ADMIT Internal Medicine; ATTEND Internal Medicine
DX: A41.9 Sepsis, unspecified organism (principal); J96.01 Acute respiratory failure with hypoxia; R53.2 Functional quadriplegia; J18.9 Pneumonia, unspecified organism; R65.21 Severe sepsis with septic shock; I82.621 Acute embolism and thrombosis of deep veins of right upper extremity; I82.A11 Acute embolism and thrombosis of right axillary vein; J98.11 Atelectasis; R47.01 Aphasia; F41.9 Anxiety disorder, unspecified; G20 Parkinson's disease; E11.9 Type 2 diabetes mellitus without complications; E78.00 Pure hypercholesterolemia, unspecified; E78.5 Hyperlipidemia, unspecified; F25.9 Schizoaffective disorder, unspecified; I25.10 Atherosclerotic heart disease of native coronary artery without angina pectoris; I50.9 Heart failure, unspecified; I77.810 Thoracic aortic ectasia; N40.0 Benign prostatic hyperplasia without lower urinary tract symptoms; Z87.01 Personal history of pneumonia (recurrent); Z87.891 Personal history of nicotine dependence; Z88.0 Allergy status to penicillin; Z99.81 Dependence on supplemental oxygen; F32.9 Major depressive disorder, single episode, unspecified
CPT/HCPCS: 36415; 36600; 71045; 71275; 80053; 80164; 80202; 81001; 82553; 82565; 82803; 82947; 83605; 83615; 83735; 83880; 84484; 85025; 85027; 87040; 87077; 87205; 87804; 93005; 93971; 94640; 96361; 96365; 96367; J1815; J1940; J1956; J2185; J3370; J3490; J7040; J7620; P9612; 99291-25; J7030